=== PATIENT | female | born 1985 | race Caucasian/White ===

== ENCOUNTER → 2017-10-27 11:41 | Outpatient (CLI) | payer BC, SELFPAY ==
[2017-10-27 12:31] LABS: Add Manual Diff / Slide Review NO; Basophils Percent Auto 0.5 % (0-2); Eosinophils Percent Auto 1.1 % (2-4); Hematocrit 40.3 % (36-46); Hemoglobin 13.4 g/dL (12.0-16.0); Lymphocytes Percent Auto 30.2 % (25-40); Mean Corpuscular HGB Conc 33.4 % (30-36); Mean Corpuscular Hemoglobin 32.5 PG (26-34); Mean Corpuscular Volume 97.4 fL (80-100); Monocytes Percent Auto 9.2 % (3-14); Neutrophils Absolute Auto 4700 /uL (3000-5900); Platelet Count 222 X10^3/uL (150-400); Red Blood Cell Count 4.13 X10^6/uL (4.0-5.2); Red Cell Distribution Width 13.5 % (11.6-14.8); White Blood Cell Count 7.9 X10^3/uL (4.5-11.0)
[2017-10-27 16:45] LABS: Hepatitis B Surface Antigen NEGATIVE s/c (NEGATIVE); Rubella Antibody IgG 5.3 IU/mL (>15)
[2017-10-27 17:01] LABS: HIV 1 and 2 Antibody NEGATIVE (NEGATIVE); Hep C Virus Ab w/Reflex Quant NEGATIVE s/c (NEGATIVE)
[2017-10-31 13:32] LABS: HSV 2 IGG AB < 0.90 index (< 0.90); HSV1IGG < 0.90 index (< 0.90)
[2017-11-06 10:32] LABS: Rapid Plasma Reagin NON-REACTIVE
== END ==
PROVIDERS: PCP Obstetrics & Gynecology; Visit Provider Obstetrics & Gynecology
DX: Z34.91 Encounter for supervision of normal pregnancy, unspecified, first trimester (principal)
CPT/HCPCS: 36415; 80055; 86695; 86696; 86703; 86787; 86803; 86850; 86900; 86901; 87086

== ENCOUNTER → 2017-12-27 12:03 | Outpatient (CLI) | payer BC, SELFPAY ==
[2018-01-01 13:41] LABS: AFP, Serum 44.1 ng/mL; Calc Gestational Age 18.7; Cigarette Smoker N; Donated Egg NOT GIVEN; Donor Egg Age NOT GIVEN; Estriol, Free 1.32 ng/mL; Inhibin A, Dimeric 151 pg/mL; Maternal Weight 155 lbs; Number of Fetuses NOT GIVEN; Previous Pregnancy Down Syndro NOT GIVEN; hCG, MoM 2.21; hCG, Serum 47.8 IU/mL
== END ==
PROVIDERS: PCP Obstetrics & Gynecology; Visit Provider Obstetrics & Gynecology
DX: Z34.82 Encounter for supervision of other normal pregnancy, second trimester (principal)
CPT/HCPCS: 36415; 82105; 82677; 84702; 86336

== ENCOUNTER → 2018-01-10 10:41 | Outpatient (CLI) | payer BC, SELFPAY ==
--- NOTE | 2018-01-10 10:42 | DI.US.S_ITS ---
PROCEDURE: US OB >= 14 WEEKS FETUS INDICATIONS: anatomy survey OUTSIDE/PRIOR DATING DATA: Last menstrual period (LMP): 08/18/17. LMP-based estimated date of delivery (SOMMER): 05/25/18. First dating scan (date and location): 11/01/17. Estimated date of delivery (SOMMER) from first dating scan: 05/28/18. TECHNIQUE: Real-time scanning was performed of the fetus, with image documentation and biometric measurements. Endovaginal scanning: No COMPARISON: [facility], , OB <= 14 WEEKS FETUS, 11/01/2017, 11:17. FINDINGS: General: A single living intrauterine gestation is present. Presentation: Vertex. Placenta: Placental position is anterior, without previa. Amniotic fluid index: 16.0 cm, normal range is 5-24 cm. heart rate: 147 beats per minute. Maternal cervical canal: 7.1 cm long. Normal lower limit is 2.5 cm. biometrics: Biparietal diameter: 20 weeks Head circumference: 20 weeks 1 day Abdominal circumference: 20 weeks 2 days Femur length: 20 weeks 3 days Estimated gestational age from initial scan: 20 weeks 2 days Composite gestational age from present scan: 20 weeks 2 days Estimated weight and percentile: 347 g; 48 percentile Measurement variability for biometric dating: +/- 7 days from 14 weeks to 15 weeks 6 days gestation, +/- 10 days from 16 weeks to 21 weeks 6 days gestation, +/- 2 weeks from 22 weeks to 27 weeks 6 days gestation, +/- 3 weeks for 28 weeks gestation or later. weight reference: 4500 g or EFW >90/95% is considered macrosomia or large for gestational age. EFW <10% is small for gestational age. EFW 5% or less is considered intra-uterine growth restriction. Anatomic survey: Neuro: Ventricles are non-dilated at less than 10 mm. Cisterna magna is normal at 3-11 mm. Cerebellum is normal in size and morphology. Nuchal skin fold: Normal at less than 6 mm between 14-21 weeks gestational age. Face: Nose and lips are normal and facial profile not well-seen.. Spine: No evidence for spina bifida. Heart: 4-chambered heart is present, with normal ventricular outflow tracts. Diaphragm: Diaphragm is intact. Stomach: Left-sided stomach is present. Kidneys: No hydronephrosis. Normal is less than 5 mm in 2nd trimester, less than 7 mm in 3rd trimester. Cord: 3-vessel cord has orthotopic insertion. Bladder: Normal in size. Extremities: All 4 extremities identified. IMPRESSION: 1. Single living IUP redemonstrated and interval growth is normal. 2. Facial profile not well seen otherwise normal anatomy. Dictated by: Sudeep Dick [facility] Interpreted: Enzo Mills MD on 01/10/2018 at 12:07 Approved by: Enzo Mills M.D. on 01/10/2018 at 12:48
== END ==
PROVIDERS: PCP Obstetrics & Gynecology; Visit Provider Obstetrics & Gynecology
DX: Z34.82 Encounter for supervision of other normal pregnancy, second trimester (principal); Z3A.20 20 weeks gestation of pregnancy
CPT/HCPCS: 76811

== ENCOUNTER → 2018-01-27 18:18 | Outpatient (CLI) | payer BC, SELFPAY ==
--- NOTE | 2018-01-27 19:41 | PM.OBTRLD ---
Visit Information Visit Information Date of evaluation: 01/27/18 Primary OB Provider: Aga Le On-call OB Provider: Mili Fuchs Reason for Evaluation: Yes rupture of membranes Review of Systems Review of Systems Patient states she had a gush of what she thought was going to be blood with post fluid and she continued to have what she described as leaking small amount of fluid. She denies any fevers. She denies any contractions. She has noted good movement. Exam Vital Signs (past 8 hours): Blood pressure 104/57, pulse is 75, pulse is 77 Narrative Exam Narrative: Abdomen is soft nontender. Speculum exam reveals a normal vagina and cervix without any obvious pooling of fluid. AmniSure was performed and was negative. Cervix is long and closed. Ultrasound normal amniotic fluid volume and good movement. Evaluation Evaluation Baseline heart rate: 145 Variability: Average (6-10) monitor decelerations: Absent Contraction Frequency (minutes): 0 Cervical dilation (cm): 0 Cervical effacement (%): 0 station: -4 Non-invasive Membranes Rupture Test: negative Diagnosis, Plan/Disposition Final Diagnosis (1) Premature labor after 22 weeks and before 37 weeks without delivery: Current Visit: Yes Status: Acute Plan/Disposition Plan: No evidence of actual rupture membranes. Patient is reassured. Urine will be checked for infection. Patient is to call if any changes. OB Disposition: home
[2018-01-27 20:13] LABS: Bacteria Urine None Seen; RBC Urine None Seen (0-5/HPF); WBC Urine None Seen (0-5/HPF)
[2018-01-27 20:15] LABS: Appearance Urine UA SL CLOUDY; Bilirubin Urine UA NEGATIVE (NEGATIVE); Color Urine UA YELLOW; Glucose Urine UA NEGATIVE (Normal); Ketones Urine UA NEGATIVE (NEGATIVE); Leukocyte Esterase Urine UA NEGATIVE (NEGATIVE); Nitrite Urine UA Negative (Negative); Occult Blood Urine UA NEGATIVE (Negative); Protein Urine UA NEGATIVE (Negative); Specific Gravity Urine UA 1.015 (1.000-1.035); Urobilinogen Urine UA 0.2 E.U./dL (0.2)
[2018-01-27 20:28] VITALS: BP 105/59; PULSE 73; RESP 16; TEMP 36.3
[2018-01-27 20:31] LABS: Amorphous Sediment Urine 3+
[2018-01-27 20:32] LABS: Culture Indicated Urine Cult Not Indicated
== END | disposition home or self-care (01) ==
LOC: LABOR 18:25 → OB 01-30 08:46
PROVIDERS: Specialist; PCP Obstetrics & Gynecology; Visit Provider Family Medicine
DX: Z34.82 Encounter for supervision of other normal pregnancy, second trimester (principal); Z3A.23 23 weeks gestation of pregnancy
CPT/HCPCS: 59050; 76815; 81001; 84112; G0378; G0379

== ENCOUNTER → 2018-03-19 09:08 | Outpatient (CLI) | payer BC, SELFPAY ==
[2018-03-19 11:33] LABS: Hematocrit 34.3 % (36-46); Hemoglobin 11.6 g/dL (12.0-16.0)
[2018-03-19 12:08] LABS: GTT (PREG) 1 Hour PP 50gm Dose 83 mg/dL (76-139)
== END ==
PROVIDERS: PCP Obstetrics & Gynecology; Visit Provider Obstetrics & Gynecology
DX: Z34.92 Encounter for supervision of normal pregnancy, unspecified, second trimester (principal)
CPT/HCPCS: 36415; 82950; 85014; 85018

== ENCOUNTER → 2018-05-02 12:56 | Outpatient (CLI) | payer BC, SELFPAY ==
[2018-05-03 16:28] LABS: Strep Grp B PCR NEG for Grp B Strep
== END ==
PROVIDERS: PCP Obstetrics & Gynecology; Visit Provider Obstetrics & Gynecology
DX: Z34.83 Encounter for supervision of other normal pregnancy, third trimester (principal); Z3A.36 36 weeks gestation of pregnancy
CPT/HCPCS: 87653

== ENCOUNTER 2018-05-28 13:51 | Outpatient (CLI) | payer BC, SELFPAY ==
--- NOTE | 2018-05-28 15:34 | P.TNLD_ITS ---
Visit Information Visit Information Date of evaluation: 05/28/18 Primary OB Provider: Aga Le On-call OB Provider: Aga Le Reason for Evaluation: Yes non-stress test non-stress test reason: other ( Postdates) Evaluation Evaluation Baseline heart rate: 140 Variability: Moderate (11-25) monitor accelerations: Present monitor decelerations: Absent Contraction Frequency (minutes): 7 Uterine Contraction Intensity: Mild Category of Tracing: I Diagnosis, Plan/Disposition Final Diagnosis (1) 40 weeks gestation of : Current Visit: No Status: Acute Plan/Disposition Plan: Discharge to home Follow-up by phone tomorrow morning kick counts
== END 2018-05-28 14:30 | disposition home or self-care (01) ==
LOC: LABOR 14:02 → OB 05-29 14:55
PROVIDERS: Visit Provider Obstetrics & Gynecology
DX: O48.0 Post-term pregnancy (principal); Z3A.40 40 weeks gestation of pregnancy
CPT/HCPCS: 59025; G0378; G0379

== ENCOUNTER 2018-06-01 06:52 | Inpatient (IN) | payer BC, SELFPAY ==
[2018-06-01] MEDS: LACTATED RINGERS 1,000 ML 100 ML IV ×2 (07:45→12:45)
[2018-06-01] MEDS: OXYTOCIN PREMIX 30 UNIT/500 ML PLAST..BAG IV (08:16)
[2018-06-01 08:36] LABS: Add Manual Diff / Slide Review NO; Basophils Absolute Auto 0 /uL (0-100); Basophils Percent Auto 0.4 % (0-2); Eosinophils Absolute Auto 100 /uL (0-450); Hematocrit 34.9 % (36-46); Hemoglobin 11.9 g/dL (12.0-16.0); Lymphocytes Absolute Auto 1800 /uL (1100-4500); Lymphocytes Percent Auto 16.8 % (25-40); Mean Corpuscular HGB Conc 34.1 % (30-36); Mean Corpuscular Hemoglobin 33.6 PG (26-34); Mean Corpuscular Volume 98.5 fL (80-100); Monocytes Absolute Auto 1000 /uL (0-900); Monocytes Percent Auto 9.2 % (3-14); Neutrophils Absolute Auto 7800 /uL (1500-7000); Neutrophils Percent Auto 72.6 % (50-75); Platelet Count 176 X10^3/uL (150-400); Red Blood Cell Count 3.55 X10^6/uL (4.0-5.2); Red Cell Distribution Width 13.7 % (11.6-14.8); White Blood Cell Count 10.7 X10^3/uL (4.5-11.0)
[2018-06-01 09:54] VITALS: BP 105/60
--- NOTE | 2018-06-01 12:18 | PM.OBHP.1 ---
OB HPI Date/Time Date of admission: 06/01/18 Date Patient Seen: 06/01/18 Time Patient Seen: 07:30 History of Present Condition Chief complaint: OBSERVATION OF LABOR : 3 Para: 1 Estimated Date of Delivery: 05/25/18 Estimated Gestational Age (weeks): 41 Narrative: Chandni King is a 33 year old female admitted for induction for postdates Indications Indication for induction OB: post dates History of Present care: good care, initiated at week # (10), number of visits (12) and pounds weight gain (36) Dating criteria: LMP confirmed by 1st trimester US Ultrasounds: normal mid trimester US Obstetrical complications: none Medical complications: none Preadmission Labs Blood type: O (+) positive -: Antibody screen: negative, GBS status: negative, HBsAG: negative, HIV: negative, HSV 1: negative, HSV 2: negative and RPR/VDLR: negative -: Rubella: not immune and Varicella: immune HCAB: negative Quad screen: Normal 1 hr GTT: 83 Prior (ies) History: 08/13/2009 male infant 39 weeks 6 lb 11 oz with epidural catheter and gestational hypertension Evaluation Evaluation Baseline heart rate: 145 Variability: Moderate (11-25) monitor accelerations: Present monitor decelerations: Variable Contraction Frequency (minutes): 5 Uterine Contraction Intensity: Mild Category of Tracing: II Cervical dilation (cm): 4 Cervical effacement (%): 80 station: -2 Laboratory results: Laboratory Tests 06/01/18 06/01/18 07:40 07:40 WBC 10.7 RBC 3.55 L Hgb 11.9 L Hct 34.9 L MCV 98.5 MCH 33.6 MCHC 34.1 RDW 13.7 Plt Count 176 Neut % (Auto) 72.6 Lymph % (Auto) 16.8 L [place] % (Auto) 9.2 Eos % (Auto) 1.0 L Baso % (Auto) 0.4 Neut # (Auto) 7800 H Lymph # (Auto) 1800 [place] # (Auto) 1000 H Eos # (Auto) 100 Baso # (Auto) 0 Blood Type O Positive Antibody Screen Negative PFSH Medical History Mild exercise-induced asthma (Chronic) Surgical History H/O breast augmentation (Chronic) Hx of appendectomy (Inactive) Social History Smoking Status: Never smoker Social History Smoking Status: Never smoker Meds Allergies Allergy/AdvReac Type Severity Reaction Status Date / Time No Known Drug Allergies Allergy Verified 06/01/18 09:55 Review of Systems Review of Systems Patient denies any signs or symptoms of preeclampsia. She is not leaking fluid. She has noted good movement. She has mild irregular contractions. All systems reviewed & are unremarkable except as noted in HPI and below Exam Vital Signs (past 8 hours): - Blood pressure 105/60, pulse of 73, temperature 97.7? 06/01/18 09:54 Blood Pressure 105/60 Narrative Exam Narrative: HEENT exam within normal limits. Lungs are clear to auscultation and percussion. Heart is regular rate and rhythm no S3-S4 or murmurs. Abdomen is soft, nontender, gravid with vertex . Extremities with out edema and nontender. Objective Labs Result Diagrams: 06/01/18 07:40 Labs: Laboratory Results - last 24 hr 06/01/18 06/01/18 07:40 07:40 WBC 10.7 RBC 3.55 L Hgb 11.9 L Hct 34.9 L MCV 98.5 MCH 33.6 MCHC 34.1 RDW 13.7 Plt Count 176 Neut % (Auto) 72.6 Lymph % (Auto) 16.8 L [place] % (Auto) 9.2 Eos % (Auto) 1.0 L Baso % (Auto) 0.4 Neut # (Auto) 7800 H Lymph # (Auto) 1800 [place] # (Auto) 1000 H Eos # (Auto) 100 Baso # (Auto) 0 Blood Type O Positive Antibody Screen Negative Assessment and Plan (1) Post term at 41 weeks gestation: Current visit: Yes Status: Acute Patient was admitted for induction for post-term . Will start Pitocin. A ROM when indicated. Patient is requesting epidural catheter for pain control. Patient is rubella nonimmune so will need rubella . Patient did receive the Tdap in the 3rd trimester.
--- NOTE | 2018-06-01 12:28 | P.HPOB_ITS ---
OB HPI Date/Time Date of admission: 06/01/18 Date Patient Seen: 06/01/18 Time Patient Seen: 07:30 History of Present Condition Chief complaint: OBSERVATION OF LABOR : 3 Para: 1 Estimated Date of Delivery: 05/25/18 Estimated Gestational Age (weeks): 41 Narrative: Chandni King is a 33 year old female admitted for induction for postdates Indications Indication for induction OB: post dates History of Present care: good care, initiated at week # (10), number of visits (12) and p ounds weight gain (36) Dating criteria: LMP confirmed by 1st trimester US Ultrasounds: normal mid trimester US Obstetrical complications: none Medical complications: none Preadmission Labs Blood type: O (+) positive -: Antibody screen: negative, GBS status: negative, HBsAG: negative, HIV: negative, HSV 1: negative, HSV 2: negative and RPR/VDLR: negative -: Rubella: not immune and Varicella: immune HCAB: negative Quad screen: Normal 1 hr GTT: 83 Prior (ies) History: 08/13/2009 male infant 39 weeks 6 lb 11 oz with epidural catheter and gestational hypertension Evaluation Evaluation Baseline heart rate: 145 Variability: Moderate (11-25) monitor accelerations: Present monitor decelerations: Variable Contraction Frequency (minutes): 5 Uterine Contraction Intensity: Mild Category of Tracing: II Cervical dilation (cm): 4 Cervical effacement (%): 80 station: -2 Laboratory results: Laboratory Tests 06/01/18 06/01/18 07:40 07:40 WBC 10.7 RBC 3.55 L Hgb 11.9 L Hct 34.9 L MCV 98.5 MCH 33.6 MCHC 34.1 RDW 13.7 Plt Count 176 Neut % (Auto) 72.6 Lymph % (Auto) 16.8 L [place] % (Auto) 9.2 Eos % (Auto) 1.0 L Baso % (Auto) 0.4 Neut # (Auto) 7800 H Lymph # (Auto) 1800 [place] # (Auto) 1000 H Eos # (Auto) 100 Baso # (Auto) 0 Blood Type O Positive Antibody Screen Negative PFSH Medical History Mild exercise-induced asthma (Chronic) Surgical History H/O breast augmentation (Chronic) Hx of appendectomy (Inactive) Social History Smoking Status: Never smoker Social History Smoking Status: Never smoker Meds Allergies Allergy/AdvReac Type Severity Reaction Status Date / Time No Known Drug Allergies Allergy Verified 06/01/18 09:55 Review of Systems Review of Systems Patient denies any signs or symptoms of preeclampsia. She is not leaking fluid. She has noted good movement. She has mild irregular contractions. All systems reviewed & are unremarkable except as noted in HPI and below Exam Vital Signs (past 8 hours): - Blood pressure 105/60, pulse of 73, temperature 97.7? 06/01/18 09:54 Blood Pressure 105/60 Narrative Exam Narrative: HEENT exam within normal limits. Lungs are clear to auscultation and percussion. Heart is regular rate and rhythm no S3-S4 or murmurs. Abdomen is soft, nontender, gravid with vertex infant. Extremities with out edema and nontender. Objective Labs Result Diagrams: 06/01/18 07:40 Labs: Laboratory Results - last 24 hr 06/01/18 06/01/18 07:40 07:40 WBC 10.7 RBC 3.55 L Hgb 11.9 L Hct 34.9 L MCV 98.5 MCH 33.6 MCHC 34.1 RDW 13.7 Plt Count 176 Neut % (Auto) 72.6 Lymph % (Auto) 16.8 L [place] % (Auto) 9.2 Eos % (Auto) 1.0 L Baso % (Auto) 0.4 Neut # (Auto) 7800 H Lymph # (Auto) 1800 [place] # (Auto) 1000 H Eos # (Auto) 100 Baso # (Auto) 0 Blood Type O Positive Antibody Screen Negative Assessment and Plan (1) Post term at 41 weeks gestation: Current visit: Yes Status: Acute Patient was admitted for induction for post-term . Will start Pitocin. A ROM when indicated. Patient is requesting epidural catheter for pain control. Patient is rubella nonimmune so will need rubella . Patient did receive the Tdap in the 3rd trimester.
--- NOTE | 2018-06-01 16:19 | PM.OBPRVD ---
Events: Labor Induction (41 week) Delivery date: 06/01/18 Intrapartal events: None Induction method: per pitocin protocol Delivery monitor: external FHT and external uterine Route of delivery: L&D Laceration Description: None Estimated blood loss (mL): 100 Anesthesia type: Epidural Narrative: Patient arrived on Labor and delivery for induction of labor at 41 weeks. She was started on Pitocin. She was AROMed for clear fluid. She received an epidural catheter for pain control. heart tones category 1 to category 2 throughout labor. She delivered spontaneously, over an intact perineum a viable female . After the cord stopped pulsating the cord was clamped cut and cord bloods obtained. The placenta delivered spontaneously with 3 vessels and intact. There were no cervical, vaginal, or perineal tears. Estimated blood loss was 100 cc. Patient and infant are doing well. Weight 7 lb 6 oz, 3354 g [place] Baby 1: Infant gender: Female Presentation: vertex position: Right Occiput Anterior Placenta delivery description: Spontaneous cord vessel description: 3 Vessels score (1 min): 8 score (5 min): 9 Plan for aftercare: Routine care
[2018-06-01 20:16] VITALS: TEMP 36.9
[2018-06-01] MEDS: IBUPROFEN 600 MG TABLET PO (20:16)
[2018-06-02] MEDS: IBUPROFEN 600 MG TABLET PO ×2 (01:51→08:08)
[2018-06-02 09:05] LABS: Add Manual Diff / Slide Review NO; Basophils Absolute Auto 0 /uL (0-100); Basophils Percent Auto 0.3 % (0-2); Eosinophils Absolute Auto 100 /uL (0-450); Eosinophils Percent Auto 0.5 % (2-4); Hemoglobin 11.8 g/dL (12.0-16.0); Lymphocytes Absolute Auto 1200 /uL (1100-4500); Lymphocytes Percent Auto 11.4 % (25-40); Mean Corpuscular HGB Conc 33.6 % (30-36); Mean Corpuscular Hemoglobin 33.2 PG (26-34); Mean Corpuscular Volume 98.7 fL (80-100); Monocytes Absolute Auto 1200 /uL (0-900); Monocytes Percent Auto 11.1 % (3-14); Neutrophils Absolute Auto 8000 /uL (1500-7000); Neutrophils Percent Auto 76.7 % (50-75); Platelet Count 162 X10^3/uL (150-400); Red Blood Cell Count 3.55 X10^6/uL (4.0-5.2); Red Cell Distribution Width 13.8 % (11.6-14.8); White Blood Cell Count 10.4 X10^3/uL (4.5-11.0)
--- NOTE | 2018-06-02 11:12 | PM.OBDS.1 ---
Discharge Providers Date of admission: 06/01/18 06:52 Primary care physician: Aga Le MD Consults: 06/01/18 16:13 Consult to [facility] Warm Up Routine Comment: Discharge provider: Mili Fuchs MD Discharge Date: 06/02/18 Summary Date Patient Seen: 06/02/18 Time Patient Seen: 11:12 Hospital Course: Patient arrived on Labor and delivery for induction for postdates. She received Pitocin and was AROM for clear fluid. She received an epidural catheter for pain control. She delivered spontaneously a viable female weighing 3354 g, 7 lb 6 oz. She and the baby are doing well. She is breast-feeding without difficulty. No signs or symptoms of preeclampsia. No fevers. Just cramping but no significant pain. Blood pressure 111/62, pulse of 74, temperature 97.6? Abdomen is soft nontender. Uterus is firm, at U, nontender. Mild lochia. Extremities with trace edema and nontender. Patient is Rh positive so does not need RhoGAM. She will receive rubella vaccine prior to discharge. Peripartum Data Infant Delivery Method: Natural Vaginal Laceration description: None Procedures: Pitocin induction, epidural catheter, vaginal delivery. complications: none 1: Gender: Female Disposition of : home Discharge Diagnosis (1) Post term at 41 weeks gestation: Status: Acute Status at Discharge Functional status at discharge: independent ambulation Overall status at discharge: patient is progressing back to baseline Time Spent with Patient Total time spent providing and/or coordinating discharge services: Less than 30 minutes Objective Labs Result Diagrams: 06/02/18 Unknown Labs: Laboratory Results - last 24 hr 06/02/18 Unknown WBC 10.4 RBC 3.55 L Hgb 11.8 L Hct 35.0 L MCV 98.7 MCH 33.2 MCHC 33.6 RDW 13.8 Plt Count 162 Neut % (Auto) 76.7 H Lymph % (Auto) 11.4 L [place] % (Auto) 11.1 Eos % (Auto) 0.5 L Baso % (Auto) 0.3 Neut # (Auto) 8000 H Lymph # (Auto) 1200 [place] # (Auto) 1200 H Eos # (Auto) 100 Baso # (Auto) 0 Discharge Plan Discharge Plan Patient Disposition: Home Discharge Med Rec/Prescriptions Follow up/Referrals: Garde,Aga A, MD [Primary Care Provider] - 6 Weeks ( exam) Provider Discharge Instructions Diet: Regular Activity: Nothing in vagina for 6 weeks Discharge Data Primary Care Provider: Aga Le Attending Provider: Aga Le Admit Date/Time: 06/01/18 06:52
[2018-06-02 11:31] VITALS: BP 111/62; PULSE 74; RESP 16; TEMP 36.4
[2018-06-02 13:01] VITALS: BP 111/62; PULSE 74; RESP 16; TEMP 36.4
[2018-06-02] MEDS: MEASLES,MUMPS,RUBELLA VACC/PF 0.5 ML VIAL SUBCUT (13:41)
== END 2018-06-02 14:08 | disposition home or self-care (01) | DRG 807 ==
PROVIDERS: Specialist; Admitting Provider Obstetrics & Gynecology; PCP Obstetrics & Gynecology; Visit Provider Obstetrics & Gynecology
DX: O48.0 Post-term pregnancy (principal); Z37.0 Single live birth; Z3A.41 41 weeks gestation of pregnancy
CPT/HCPCS: 01967; 36415; 59050; 59400; 59409; 85025; 86850; 86900; 86901; G0379; J2590

== ENCOUNTER → 2019-01-03 13:04 | Outpatient (CLI) | payer BC, SELFPAY ==
--- NOTE | 2019-01-03 | DI.MG.S_ITS ---
BILATERAL DIGITAL DIAGNOSTIC MAMMOGRAM 3D/2D WITH AUGMENTATION: 01/03/2019 CLINICAL: Right breast mass. No prior exams were available for comparison. The tissue of both breasts is heterogeneously dense. This may lower the sensitivity of mammography. Bilateral prepectoral breast implants are present. No finding to correspond to the patient's palpable abnormality. No significant masses, calcifications, or other findings are seen in either breast. IMPRESSION: INCOMPLETE: NEEDS ADDITIONAL IMAGING EVALUATION There is no mammographic correlate to the patient's palpable abnormality, and thus it remains indeterminate. Ultrasound evaluation is recommended. This was performed immediately following this exam. This exam was interpreted at Station ID: [id number]. NOTE: For mammograms, a report in lay terms will be sent to the patient. Approximately 15% of breast malignancies will not be visualized mammographically. In the management of a palpable breast mass, a negative mammogram must not discourage biopsy of a clinically suspicious lesion. Electronically Signed By: Kate rodrigues/:01/03/2019 17:16:31 ACR BI-RADS Category 0: Incomplete [id number]
--- NOTE | 2019-01-03 13:04 | DI.US.S_ITS ---
LIMITED ULTRASOUND OF RIGHT BREAST: 01/03/2019 CLINICAL: Palpable right breast lump. Comparison is made to exam dated: 01/03/2019 [facility]. Color flow and real-time ultrasound of the right breast were performed. Michaud scale images of the real-time examination were reviewed. There is no cyst, solid mass, or shadowing in the tissue overlying the implant. The contour of the implant capsule is wavy. There is trace amount of localized fluid around right implant at 11:30 o'clock which correlates to the palpable abnormality. IMPRESSION: INCOMPLETE: NEEDS ADDITIONAL IMAGING EVALUATION There is no sonographic evidence of malignancy. Irregular implant contour and trace pericapsular fluid. Implant rupture cannot be excluded. Breast MRI is recommended for further evaluation of the implant integrety. Findings and recommendations were conveyed to the patient at time of exam. This exam was interpreted at Station ID: [id number]. Electronically Signed By: Kate rodrigues/:01/03/2019 17:25:30 letter sent: Need MRI Ultrasound BI-RADS: 0 Indeterminate
== END ==
PROVIDERS: PCP Nurse Practitioner Family; Visit Provider Nurse Practitioner Family
DX: R92.8 Other abnormal and inconclusive findings on diagnostic imaging of breast (principal); N63.10 Unspecified lump in the right breast, unspecified quadrant; Z98.82 Breast implant status
CPT/HCPCS: 76642; 77066; G0279

== ENCOUNTER → 2019-01-30 09:06 | Outpatient (CLI) | payer BC, SELFPAY ==
--- NOTE | 2019-01-30 09:11 | DI.MRI.S_ITS ---
BREAST MRI OF BOTH BREASTS- WITH CAD: 01/30/2019 CLINICAL: Possible implant rupture. Comparison is made to exams dated: 01/03/2019 ultrasound and 01/03/2019 mammogram - [facility]. Interpretation of this MRI was correlated with available mammograms and ultrasounds. Informed consent was obtained from the patient. 20 cc of ProHance (Gadoteridol) nonionic contrast was injected. Implant sequence, axial T1, T2, sagittal T1, and pre and post contrast T1 images were obtained with a dedicated breast coil. Post processing was performed including computer aided calculations of any tumor volumes and dimensions. Bilateral background breast enhancement is mild. Right breast: There is a prepectoral silicone implant which appears intact. No evidence of intracapsular or extracapsular rupture. No discrete mass or suspicious enhancement to suggest malignancy. There are 2 small foci of enhancement anteriorly measuring up to approximately 4 mm which demonstrate benign-appearing kinetic enhancement curves with slow initial rise and progressive uptake. Left breast: There is a prepectoral silicone implant which appears intact. No definite intracapsular or extracapsular rupture. No discrete mass or suspicious enhancement to suggest malignancy. Miscellaneous: No axillary or internal mammary lymphadenopathy by size criteria. IMPRESSION: NEGATIVE 1. No evidence of implant rupture. 2. No evidence of malignancy in the right or left breast. Recommend follow-up of patient's palpable finding clinically. This exam was interpreted at Station ID: [id number]. Electronically Signed By: Ziyad Cason M.D. ddp/:01/30/2019 13:16:28 letter sent: Clinical Evaluation ACR BI-RADS Category 1: Negative [id number]
== END ==
PROVIDERS: PCP Nurse Practitioner Family; Visit Provider Nurse Practitioner Family
DX: R92.8 Other abnormal and inconclusive findings on diagnostic imaging of breast (principal); Z98.82 Breast implant status
CPT/HCPCS: 77049; A9579

== ENCOUNTER → 2019-05-31 11:03 | Outpatient (CLI) | payer BC, SELFPAY ==
[2019-05-31 12:39] LABS: Alanine Aminotransferase 15 IU/L (<35); Albumin 4.3 g/dL (3.5-5.0); Albumin Globulin Ratio 1.3 (1.0-2.8); Alkaline Phosphatase 63 U/L (38-126); Aspartate Aminotransferase 27 IU/L (14-36); BUN Creatinine Ratio 14.4 (6-22); Bilirubin Total 0.4 mg/dL (0.2-1.3); Blood Urea Nitrogen 13 mg/dL (7-17); Calcium 9.5 mg/dL (8.4-10.2); Carbon Dioxide 26 mmol/L (22-32); Chloride 103 mmol/L (98-107); Cholesterol 167 mg/dL (140-199); Estimated Glomerular Filt Rate > 60.0 mL/min (>60); Globulin 3.3 g/dL (1.7-4.1); Glucose 88 mg/dL (70-100); HDL Cholesterol 78 mg/dL (40-60); HEMOLYSIS < 15 (0-50); LDL Cholesterol Calculated 76 mg/dL (<100); Potassium 4.1 mmol/L (3.4-5.1); Sodium 140 mmol/L (137-145); Total Protein 7.6 g/dL (6.3-8.2); Triglycerides 63 mg/dL (35-150)
[2019-05-31 12:40] LABS: Hematocrit 37.2 % (36-46); Hemoglobin 12.5 g/dL (12.0-16.0); Mean Corpuscular HGB Conc 33.8 % (30-36); Mean Corpuscular Hemoglobin 32.1 PG (26-34); Platelet Count 203 X10^3/uL (150-400); Red Blood Cell Count 3.91 X10^6/uL (4.0-5.2); Red Cell Distribution Width 13.4 % (11.6-14.8); White Blood Cell Count 7.7 X10^3/uL (4.5-11.0)
== END ==
PROVIDERS: PCP Nurse Practitioner Family; Referring Provider Nurse Practitioner Family; Visit Provider Nurse Practitioner Family
DX: Z00.00 Encounter for general adult medical examination without abnormal findings (principal); Z13.6 Encounter for screening for cardiovascular disorders
CPT/HCPCS: 36415; 80053; 80061; 85027

== ENCOUNTER → 2020-02-28 12:32 | Outpatient (CLI) | payer BC, SELFPAY ==
[2020-02-28 13:17] LABS: Hematocrit 40.1 % (36-46); Hemoglobin 13.2 g/dL (12.0-16.0); Mean Corpuscular Hemoglobin 31.7 PG (26-34); Platelet Count 212 X10^3/uL (150-400); Red Blood Cell Count 4.18 X10^6/uL (4.0-5.2); Red Cell Distribution Width 12.8 % (11.6-14.8); White Blood Cell Count 6.3 X10^3/uL (4.5-11.0)
[2020-02-28 13:34] LABS: Alanine Aminotransferase 21 IU/L (<35); Albumin 4.4 g/dL (3.5-5.0); Albumin Globulin Ratio 1.4 (1.0-2.8); Alkaline Phosphatase 57 U/L (38-126); Aspartate Aminotransferase 28 IU/L (14-36); BUN Creatinine Ratio 19.6 (6-22); Bilirubin Total 0.4 mg/dL (0.2-1.3); Blood Urea Nitrogen 19 mg/dL (7-17); Calcium 9.6 mg/dL (8.4-10.2); Carbon Dioxide 30 mmol/L (22-32); Chloride 104 mmol/L (98-107); Estimated Glomerular Filt Rate > 60.0 mL/min (>60); Globulin 3.1 g/dL (1.7-4.1); Glucose 91 mg/dL (70-100); HEMOLYSIS < 15 (0-50); Sodium 138 mmol/L (137-145); Total Protein 7.5 g/dL (6.3-8.2)
== END ==
PROVIDERS: PCP Nurse Practitioner Family; Referring Provider Nurse Practitioner Family; Visit Provider Nurse Practitioner Family
DX: F41.9 Anxiety disorder, unspecified (principal); R00.2 Palpitations
CPT/HCPCS: 36415; 80053; 84443; 85027

== ENCOUNTER → 2020-03-12 15:26 | Outpatient (CLI) | payer BC, SELFPAY ==
--- NOTE | 2020-04-10 14:44 | P.HOLT.S_ITS ---
Jig Inspector Report Referral & Results Date Patient Seen: 03/12/20 Requesting provider: Anne Dumont Indication: Palpitations Duration of monitoring (days): 6 Diary information: There were 2 patient triggered events and 1 patient diary entry Patient triggered events were associated with (within 45 seconds) sinus rhythm and PVCs Patient diary event was associated with sinus rhythm only Data: Minimum heart rate identified was 49 beats per minute at 02:46 on 03/16/2020 Maximum heart rate was 155 beats per minute at 15:32 on 03/17/2020 Less than 1% of identified beats or either ventricular supraventricular ectopic in origin Impression: 6+ day cardiac rehab nurse demonstrating rare PVCs. Based on patient triggered events PVCs are possibly the source of patient's identified symptom of palpitations. However patient also recorded symptoms during sinus rhythm only runs Clinical correlation suggested
== END ==
PROVIDERS: PCP Nurse Practitioner Family; Referring Provider Nurse Practitioner Family; Visit Provider Nurse Practitioner Family
DX: R00.2 Palpitations (principal)
CPT/HCPCS: 0296T; 0298T

== ENCOUNTER → 2020-04-04 10:01 | Outpatient (CLI) | payer BC, SELFPAY ==
[2020-04-04 11:33] LABS: COVID19 -Nasal RAPID Negative (Negative)
== END ==
PROVIDERS: PCP Nurse Practitioner Family; Visit Provider Nurse Practitioner
DX: Z03.818 Encounter for observation for suspected exposure to other biological agents ruled out (principal); H93.8X3 Other specified disorders of ear, bilateral; R19.7 Diarrhea, unspecified
CPT/HCPCS: 87635

== ENCOUNTER → 2021-01-28 12:07 | Outpatient (CLI) | payer BC, SELFPAY | PROVIDERS: PCP Nurse Practitioner Family; Visit Provider Nurse Practitioner Family | DX: L60.1 Onycholysis (principal) | CPT/HCPCS: 87102 ==

== ENCOUNTER 2021-04-03 14:22 | Emergency (ER) | payer BC, SELFPAY ==
[2021-04-03 14:49] VITALS: BP 122/62; PULSE 82; RESP 16; TEMP 36.7; O2SAT 98; BMI 23.6
[2021-04-03 15:40] LABS: Add Manual Diff / Slide Review NO; Basophils Absolute Auto 0 /uL (0-100); Basophils Percent Auto 0.6 % (0-2); Eosinophils Absolute Auto 100 /uL (0-450); Eosinophils Percent Auto 1.5 % (2-4); Hematocrit 39.2 % (36-46); Hemoglobin 13.1 g/dL (12.0-16.0); Lymphocytes Absolute Auto 2200 /uL (1100-4500); Lymphocytes Percent Auto 38.8 % (25-40); Mean Corpuscular HGB Conc 33.5 % (30-36); Mean Corpuscular Hemoglobin 32.1 PG (26-34); Monocytes Absolute Auto 400 /uL (0-900); Monocytes Percent Auto 7.8 % (3-14); Neutrophils Absolute Auto 2900 /uL (1500-7000); Neutrophils Percent Auto 51.3 % (50-75); Platelet Count 209 X10^3/uL (150-400); Red Blood Cell Count 4.08 X10^6/uL (4.0-5.2); Red Cell Distribution Width 13.3 % (11.6-14.8); White Blood Cell Count 5.6 X10^3/uL (4.5-11.0)
[2021-04-03 15:43] LABS: Alanine Aminotransferase 23 IU/L (<35); Albumin 4.4 g/dL (3.5-5.0); Albumin Globulin Ratio 1.5 (1.0-2.8); Alkaline Phosphatase 60 U/L (38-126); Aspartate Aminotransferase 28 IU/L (14-36); BUN Creatinine Ratio 21.6 (6-22); Bilirubin Total 0.3 mg/dL (0.2-1.3); Blood Urea Nitrogen 21 mg/dL (7-17); Calcium 9.5 mg/dL (8.4-10.2); Carbon Dioxide 28 mmol/L (22-32); Chloride 105 mmol/L (98-107); Estimated Glomerular Filt Rate > 60.0 mL/min (>60); Globulin 2.9 g/dL (1.7-4.1); Glucose 94 mg/dL (70-100); HEMOLYSIS < 15 (0-50); Potassium 3.5 mmol/L (3.4-5.1); Sodium 141 mmol/L (137-145); Total Protein 7.3 g/dL (6.3-8.2)
[2021-04-03 15:46] LABS: Bacteria Urine None Seen; Culture Indicated Urine Cult Not Indicated; RBC Urine 1-5/HPF (0-5/HPF); WBC Urine None Seen (0-5/HPF)
--- NOTE | 2021-04-03 16:41 | ED_ITS ---
HPI - <BELKIS Lee - Last Filed: 04/03/21 16:54> General Chief complaint: Vaginal Bleeding Stated complaint: Bleeding/cramping- 6 weeks Time Seen by Provider: 04/03/21 15:21 Source: patient Mode of arrival: Ambulatory Limitations: no limitations History of Present Illness HPI Narrative: 36-year-old female presents to the emergency department for vaginal b leeding, cramping, with clot it is. Patient reports she is 6 weeks , her last menstrual period was February 21, 2021. Her bleeding and cramping started this morning and her OBGYN sent her into the emergency department. Patient reports that she is mildly nauseated, denies any fever, vomiting, diarrhea, abdominal pain, back pain, or other. 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 She had a positive test 1 week ago and that is when she found out she was . Patient reports that she just come off control when they started trying to get and then she got right away so did not expect this. Related Data Previous Rx's Medication Instructions Recorded hkovtakecp-frpttgcmljoil-qpfgiokd 1 cap PO Q4-6H PRN #30 cap 04/23/20 50 mg-325 mg-40 mg capsule etonogestrel 0.12 mg-ethinyl 1 vag ring VAG Q4W #3 each 11/11/20 estradiol 0.015 mg/24 hr vaginal ring (NuvaRing) buspirone 5 mg tablet 5 mg PO TID #270 tab 01/27/21 ciclopirox 8 % topical solution 1 applic TOPICAL BEDTIME 28 Days 01/28/21 #6.6 ml Allergies Allergy/AdvReac Type Severity Reaction Status Date / Time No Known Drug Allergies Allergy Verified 04/03/21 14:53 Review of Systems <BELKIS Lee - Last Filed: 04/03/21 16:54> Review of Systems Narrative: General: denies fever, chills Head/Neck: denies headache, neck pain Eyes: denies visual changes, eye pain Cardio: denies chest pain, palpitations Respiratory: denies shortness of breath, cough GI: denies abdominal pain, nausea, vomiting, or diarrhea : denies dysuria, hematuria 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 MSK: denies joint pain, muscle weakness Skin: denies rash, itching Neuro: denies numbness, tingling Exam <BELKIS Lee - Last Filed: 04/03/21 16:54> Narrative Exam Narrative: Independently reviewed vitals signs and nursing notes. General: Awake, alert, nontoxic, no cardiorespiratory distress Head/Neck: Atraumatic, neck full range of motion Eyes: EOMI, conjunctiva normal Nose: nares patent, no rhinorrhea Mouth/Throat: moist mucus membranes, posterior pharynx normal, no oral lesions Cardio: Regular rate and rhythm, no peripheral edema Respiratory: respirations unlabored without wheezing, stridor, or rales. No retractions. 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 No ultrasound ordered as patient 's hCG level was 14. Patient did not have tenderness to her suprapubic area or over either ovary. MSK: Moves all extremities, neurovascularly intact Skin: Normal capillary refill, no rash Neuro: Normal speech and cognition, normal gait Initial Vital Signs Initial Vital Signs: Vital Signs Temperature 98.1 F 04/03/21 14:49 Pulse Rate 82 04/03/21 14:49 Respiratory Rate 16 04/03/21 14:49 Blood Pressure 122/62 04/03/21 14:49 Pulse Oximetry 98 04/03/21 14:49 Course <BELKIS Lee - Last Filed: 04/03/21 16:54> Orders Ordered: ED Orders 04/03/21 14:54 Urine Microscopic Stat 04/03/21 15:10 ABO RH Type Stat Complete Blood Count AUTO DIFF Stat Comprehensive Metabolic Panel Stat HCG Quantitative /Beta subunit Stat 04/03/21 15:23 US OB transvaginal Stat Vital Signs Vital signs: Vital Signs - 8 hr 04/03/21 14:49 Temperature 98.1 F Pulse Rate 82 Respiratory Rate 16 Blood Pressure 122/62 Pulse Oximetry 98 MDM - OB/Uterine Contractions <BELKIS Lee - Last Filed: 04/03/21 16:54> Lab Data Result diagrams: 04/03/21 15:10 04/03/21 15:10 Labs: Lab Results 04/03/21 04/03/21 04/03/21 Range/Units 14:54 15:10 15:10 WBC 5.6 (4.5-11.0) X10^3/uL RBC 4.08 (4.0-5.2) X10^6/uL Hgb 13.1 (12.0-16.0) g/dL Hct 39.2 (36-46) % MCV 96.0 (80-100) fL MCH 32.1 (26-34) PG MCHC 33.5 (30-36) % RDW 13.3 (11.6-14.8) % Plt Count 209 (150-400) X10^3/uL Neut % (Auto) 51.3 (50-75) % Lymph % (Auto) 38.8 (25-40) % [place] % (Auto) 7.8 (3-14) % Eos % (Auto) 1.5 L (2-4) % Baso % (Auto) 0.6 (0-2) % Neut # (Auto) 2900 (3833-0842) /uL Lymph # (Auto) 2200 (0227-6976) /uL [place] # (Auto) 400 (0-900) /uL Eos # (Auto) 100 (0-450) /uL Baso # (Auto) 0 (0-100) /uL Sodium 141 (137-145) mmol/L Potassium 3.5 (3.4-5.1) mmol/L Chloride 105 (98-107) mmol/L Carbon Dioxide 28 (22-32) mmol/L BUN 21 H (7-17) mg/dL Creatinine 0.97 (0.52-1.04) mg/dL Estimated GFR > 60.0 (>60) mL/min BUN/Creatinine Ratio 21.6 (6-22) Glucose 94 (70-100) mg/dL Calcium 9.5 (8.4-10.2) mg/dL Total Bilirubin 0.3 (0.2-1.3) mg/dL AST 28 (14-36) IU/L ALT 23 (<35) IU/L Alkaline Phosphatase 60 (38-126) U/L Total Protein 7.3 (6.3-8.2) g/dL Albumin 4.4 (3.5-5.0) g/dL Globulin 2.9 (1.7-4.1) g/dL Albumin/Globulin Ratio 1.5 (1.0-2.8) HCG, Quant 14.0 mIU/mL Urine RBC 1-5/hpf (0-5/HPF) Urine WBC None seen (0-5/HPF) Urine Bacteria None seen (None) Ur Culture Indicated? Cult not indicated Blood Type 04/03/21 Range/Units 15:10 WBC (4.5-11.0) X10^3/uL RBC (4.0-5.2) X10^6/uL Hgb (12.0-16.0) g/dL Hct (36-46) % MCV (80-100) fL MCH (26-34) PG MCHC (30-36) % RDW (11.6-14.8) % Plt Count (150-400) X10^3/uL Neut % (Auto) (50-75) % Lymph % (Auto) (25-40) % [place] % (Auto) (3-14) % Eos % (Auto) (2-4) % Baso % (Auto) (0-2) % Neut # (Auto) (4352-4477) /uL Lymph # (Auto) (7191-6623) /uL [place] # (Auto) (0-900) /uL Eos # (Auto) (0-450) /uL Baso # (Auto) (0-100) /uL Sodium (137-145) mmol/L Potassium (3.4-5.1) mmol/L Chloride (98-107) mmol/L Carbon Dioxide (22-32) mmol/L BUN (7-17) mg/dL Creatinine (0.52-1.04) mg/dL Estimated GFR (>60) mL/min BUN/Creatinine Ratio (6-22) Glucose (70-100) mg/dL Calcium (8.4-10.2) mg/dL Total Bilirubin (0.2-1.3) mg/dL AST (14-36) IU/L ALT (<35) IU/L Alkaline Phosphatase (38-126) U/L Total Protein (6.3-8.2) g/dL Albumin (3.5-5.0) g/dL Globulin (1.7-4.1) g/dL Albumin/Globulin Ratio (1.0-2.8) HCG, Quant mIU/mL Urine RBC (0-5/HPF) Urine WBC (0-5/HPF) Urine Bacteria (None) Ur Culture Indicated? Blood Type O Positive Point of Care Testing Test Results Negative Urine Dip Bedside Urine Glucose Negative Bedside Urine Bilirubin - Negative Bedside Urine Ketone - Negative Urine Specific [place] 1.030 Bedside Urine Occult Blood ++ Bedside Urine pH 6.0 Bedside Urine Protein - Negative Bedside Urine Urobilinogen 0.2 Bedside Urine Nitrite - Negative Bedside Urine Leukocytes - Negative Esterase MDM Narrative Medical decision making narrative: 36-year-old female presented to emergency department with concern for miscarriage, patient is a with LMP on February 21, 2021 had a positive test 1 today she began bleeding this morning, with cramping and clots and came to the emergency department. Her hCG level was 14, her urine test was negative, she did not have any signs of anemia on her lab work or leukocytosis, and no other abnormal labs. Pelvic ultrasound completed this patient's hCG level was too low. Patient did not have any pain, vomiting, or concern for retained products of conception. Patient instructed to follow-up with her OBGYN or PCP in the next couple days. Patient is appropriate and amenable to discharge home. Vital signs are stable on repeat examination is unremarkable. Patient has been informed of results. Patient has been given strict return to ER precautions for any new or worsening symptoms. Patient understands to follow up closely with outpatient providers as instructed. Korina hussein understands plan and agrees to discharge home. All questions and concerns answered at this time. Discharge Plan Departure Patient Disposition: Home Clinical Impression: Complete miscarriage Activity Restrictions/Additional Instructions: *You have been diagnosed with a miscarriage of a fetus 6 weeks or less. I am very sorry for this news. Your hCG level today was 14. This indicates that you are not currently , and the bleeding that you have experiencing is most likely and expulsion of contents in your uterus. If you have not already passed tissue with clots you may. We did not need to do an ultrasound today because of your HCG level. Please follow-up with your primary care provider in the next few days for recheck. I am glad that you have 2 healthy children. If you have any abdominal pain, nausea with vomiting, fever, or cramping, please return to the emergency department as you may have retained some products of conception and may need a procedure or antibiotics in that case. Otherwise, hug your babies tight, and take it easy for a few days. I'm sorry this has happened. *What to do: *Please continue to take your regular medications as directed. [ ] New medication prescriptions sent to your pharmacy: [ ] [ ] New medication written as a paper prescription [x ] No new medications given *Please follow up with your primary care provider in 2-3 days, call for an appointment. Let them know you were seen in the Emergency Department and that we ask that you be seen in follow up. We will electronically transmit a record of today's note if your PCP is in our system *If you do not have a primary care provider please contact the [facility] Resource line at [phone]. They will ask some questions about your medical history and help get you set up with a doctor in the community. *Return to Emergency Department if you should have any new, worsening or concerning symptoms, such as [fever greater than 101F, chills, worsening pain, persistent vomiting or other bothersome symptoms] Prescriptions: No Action NuvaRing 0.12-0.015 mg/24 hr ring 1 vag ring VAG Q4W Qty: 3 4RF Rx Instructions: leave in place for 3 weeks of a 4-week cycle. Due for appointment prior to future refills. buspirone 5 mg tablet 5 mg PO TID Qty: 270 2RF ukxptgnjxu-fopeqtpndjvhp-kgdr 50-325-40 mg capsule 1 cap PO Q4-6H PRN (Reason: pain) Qty: 30 1RF Rx Instructions: may interact with Nuvaring, use other forms of contraception during therapy. ciclopirox 8 % solution 1 applic topical BEDTIME 28 Days Qty: 6.6 4RF Rx Instructions: use daily, wipe off with alcohol on seventh day and start again. Do not use if Referrals: Anne Dumont ARNP [Primary Care Provider] -
== END 2021-04-03 16:52 | disposition home or self-care (01) ==
PROVIDERS: Emergency Medicine; Emergency Provider Nurse Practitioner Critical Care Medicine; PCP Nurse Practitioner Family
DX: O03.9 Complete or unspecified spontaneous abortion without complication (principal)
CPT/HCPCS: 36415; 80053; 81003; 81015; 81025; 84702; 85025; 86900; 86901; 99282; 99283

== ENCOUNTER → 2021-04-21 10:52 | Outpatient (CLI) | payer BC, SELFPAY ==
[2021-04-21 13:55] LABS: COVID19 -Nasal RAPID POSITIVE (Negative)
== END ==
PROVIDERS: PCP Nurse Practitioner Family; Referring Provider Nurse Practitioner Family; Visit Provider Nurse Practitioner Family
DX: Z20.822 Contact with and (suspected) exposure to COVID-19 (principal); R09.81 Nasal congestion; J02.9 Acute pharyngitis, unspecified; R05.9 Cough, unspecified
CPT/HCPCS: 87635

== ENCOUNTER → 2021-08-10 09:58 | Outpatient (CLI) | payer BC, SELFPAY ==
[2021-08-10 11:32] LABS: HCG Quantitative /Beta subunit 86.6 mIU/mL
== END ==
PROVIDERS: PCP Nurse Practitioner Family; Referring Provider Obstetrics & Gynecology; Visit Provider Obstetrics & Gynecology
DX: N91.2 Amenorrhea, unspecified (principal)
CPT/HCPCS: 36415; 84702

== ENCOUNTER → 2021-08-18 12:05 | Outpatient (CLI) | payer BC, SELFPAY ==
[2021-08-18 13:54] LABS: HCG Quantitative /Beta subunit 27.7 mIU/mL
== END ==
PROVIDERS: PCP Nurse Practitioner Family; Referring Provider Obstetrics & Gynecology; Visit Provider Obstetrics & Gynecology
DX: O03.4 Incomplete spontaneous abortion without complication (principal)
CPT/HCPCS: 36415; 84702

== ENCOUNTER → 2021-09-02 16:26 | Outpatient (CLI) | payer BC, SELFPAY ==
[2021-09-02 18:34] LABS: HCG Quantitative /Beta subunit < 2.4 mIU/mL
== END ==
PROVIDERS: PCP Nurse Practitioner Family; Referring Provider Obstetrics & Gynecology; Visit Provider Obstetrics & Gynecology
DX: O03.4 Incomplete spontaneous abortion without complication (principal)
CPT/HCPCS: 36415; 84702

== ENCOUNTER → 2021-09-22 14:17 | Outpatient (CLI) | payer BC, SELFPAY ==
[2021-09-22 15:41] LABS: COVID19 -Nasal RAPID Negative (Negative)
== END ==
PROVIDERS: PCP Nurse Practitioner Family; Visit Provider Obstetrics & Gynecology
DX: Z01.812 Encounter for preprocedural laboratory examination (principal); Z20.822 Contact with and (suspected) exposure to COVID-19
CPT/HCPCS: 87635

== ENCOUNTER 2021-09-23 10:16 | Day surgery (SDC) | payer BC, SELFPAY ==
[2021-09-15 14:56] VITALS: BMI 24.4
--- NOTE | 2021-09-23 | PATH_ITS ---
[facility] Accession Number: [id number] . 01 Material submitted: . cervix - CERVIX LEEP CONE . 01 Clinical history: . LEEP CONE BIOPSY OF CERVIX, TAGGED AT 12 O'CLOCK . 01 Diagnosis: Cervix, LEEP Cone: High-grade squamous intraepithelial lesion / KEELEY-2 present in the 12-3 o'clock quadrant with gland neck involvement. Patchy regions of low-grade squamous intraepithelial lesion / KEELEY-1 present in the 12-3, 3 - 6, and 6 - 9 o'clock quadrants. The inked, apparent endocervical margin is negative for dysplasia. The inked, apparent ectocervical margin is negative for dysplasia. Changes consistent with previous instrumentation present patchy distribution circumferentially. No invasive tumor identified. [facility] 09/27/2021 1345 Local . 01 Comment: The biopsy results correlate with Pap smear [id number]. . 01 Electronically signed: . Kaitlin Rodrigues MD, Pathologist NPI- [id number] . 01 Gross description: . Received in formalin and labeled with the patient's name and LEEP cone biopsy of cervix tagged at 12 o'clock and consists of a disrupted, oriented fragment of cervix with a suture at 12 o'clock, per the requisition. Reapproximated, the specimen measures 1.4 cm from 12 o'clock to 6 o'clock, 2.2 cm from 3 o'clock to 9 o'clock, and is excised to a depth of approximately 0.4 cm. The full thickness disruption occurs at approximately 6 o'clock. The ectocervix is pink-stacy and finely granular with a small amount of adherent mucohemorrhagic material. The reapproximated os is patent and patulous and measures 1.2 cm in greatest dimension. The specimen is inked as follows: Presumed endocervical margin orange and remaining stromal margin blue. The specimen is radially sectioned and submitted entirely as follows: . A1: 12 o'clock to 3 o'clock. A2: 3 o'clock to 6 o'clock. A3: 6 o'clock to 9 o'clock. A4: 9 o'clock to 12 o'clock. ([id number]) /[facility] 09/24/2021 [facility]9 Local . 01 Pathologist provided ICD-10: N87.1 . 01 CPT . 063239 Specimen Comment: A courtesy copy of this report has been sent to [phone] Performed at: 01 [facility] [address] [place] [address], [place], [place] [id number] MD Ziyad Reno MD Phone: [phone]
[2021-09-23 10:43] VITALS: BP 121/73; PULSE 78; RESP 16; TEMP 36.3; O2SAT 100; BMI 23.6
[2021-09-23] MEDS: LACTATED RINGERS 1,000 ML 100 ML IV (10:50)
--- NOTE | 2021-09-23 12:03 | PM.HP.1 ---
History of Present Illness History of Present Illness Date Patient Seen: 09/23/21 Time Patient Seen: 12:03 Chief complaint: SDC Narrative: Patient is a 36-year-old 5 para 2 with KEELEY 3 of the cervix. She presents for LEEP cone biopsy of the cervix. Patient History Medical History (Updated 08/10/21 @ 09:59 by Aga Le MD) 40 weeks gestation of Abnormal Pap smear of cervix Anxiety (~2018) History of gestational hypertension Migraine headache without aura Mild exercise-induced asthma Onycholysis Palpitations Post term at 41 weeks gestation Premature labor after 22 weeks and before 37 weeks without delivery Trichotillomania Surgical History (Updated 07/13/21 @ 17:59 by Aga Le MD) Anesthesia H/O breast augmentation (~2016) History of wisdom tooth extraction Hx of appendectomy (~2000) Family & Social History Family History (Updated 06/28/21 @ 23:05 by Tanisha Rowell) Father Atrial fibrillation Stroke Mother Anxiety Mental health problem Grandfather Cancer Grandmother Macular degeneration Grandfather Atrial fibrillation Diabetes mellitus Stroke Grandmother Atrial fibrillation Social History: household members spouse,children lives independently Yes Tobacco & Substance use: Smoking Status Never smoker alcohol intake former alcohol intake frequency a few times a month Substance Use Type does not use Meds Home Medications and Allergies Home Medications Medication Instructions Recorded Confirmed Type prenat.vits,kathy,yub-csku-rsulw 1 tab PO DAILY 07/01/21 09/23/21 History progesterone micronized 200 mg 200 mg PO BEDTIME 14 Days #14 cap 08/03/21 09/23/21 Rx capsule (Prometrium) Allergies Allergy/AdvReac Type Severity Reaction Status Date / Time No Known Drug Allergies Allergy Verified 09/23/21 10:41 Exam Vital Signs (past 8 hours): - 09/23/21 10:43 Temperature 97.4 F L Pulse Rate 78 Respiratory Rate 16 Blood Pressure 121/73 Pulse Oximetry 100 Oxygen Delivery Method Room Air Oxygen Flow Rate 0 Narrative Exam Narrative: HEENT: No thyromegaly, no anterior cervical or supraclavicular lymphadenopathy. Lungs:Clear to auscultation bilaterally, no wheezes. Cardiovascular: Regular rate and rhythm, no murmurs, rubs, or gallops. Abdomen: Well-healed scars. No hepatosplenomegaly. No masses palpable. External genitalia: Normal Vagina: Normal Cervix: Normal Bimanual exam: 6 week Week anteverted size uterus. Mobile.] Assessment & Plan Assessment & Plan narrative: Assessment: 36-year-old 5 para 2 with KEELEY 3 of the cervix Plan: LEEP cone biopsy of the cervix The risks, benefits, and alternatives to the procedure were explained to the patient. The risks including bleeding and infection. She understands these risks and agrees to proceed. A full par Q was held and consent form was signed. COVID-19 COVID-19 status: Negative Result date/Date tested (Pos, Neg/Pending): 09/23/21 Time Spent With Patient Time with patient: less than 30 minutes Critical Care time: I spent a total of [] minutes of critical care time on this patient's care today; this time is exclusive of procedural time.
--- NOTE | 2021-09-23 12:05 | PM.PREOP ---
Pre-operative Note COVID-19 COVID-19 status: Negative Result date/Date tested (Pos, Neg/Pending): 09/23/21 Criteria for continued procedure: Delay expected to result in less-positive ultimate med/surg outcome and Non-surgical alternatives not available or appropriate per current SOC Interval Note History & Physical reviewed/Exam performed by Physician: Yes Changes to H&P: No H&P completed within 30 days and has changed as indicated here:: 09/23/21
--- NOTE | 2021-09-23 13:02 | PM.GYNOP.1 ---
Operative Date/Time/Diagnoses Date of procedure: 09/23/21 Time of procedure: 13:02 Pre-op diagnosis: KEELEY 3 of the cervix Post-op diagnosis: same Procedure & Clinicians Procedure: Procedures Operation Date: 09/23/21 11:45 Actual Procedure Side Surgeon moose LEEP cone bx w. endocervix Aga Le MD Indications: KEELEY 3 by colposcopic biopsy of the cervix Surgeon: Aga Le Anesthesia Type: General (LMA) Operative Notes Findings: Lugol's light area surrounding the cervical os Closure Type: not applicable Specimen(s): other (LEEP cone biopsy of the cervix with suture at 12:00 p.m.) Estimated blood loss (mL): 25 Blood products transfused: none Procedure in detail: After informed consent was obtained, the patient was taken to the operating room where she was placed in the dorsal supine position. After adequate LMA general anesthesia was achieved, she was placed in the dorsal lithotomy position, and prepped and draped in the usual sterile fashion. A time-out was performed. A plastic coated bivalve speculum was placed into the vagina. A plastic coated single-tooth tenaculum was placed on the anterior lip of the cervix. The cervix was coated with Lugol solution. There were Lugol's light solution surrounding the cervical os circumferentially. Using the 15 mm loop with settings at 80 cut and 60 cautery, the Lugol's light area was excised in 1 piece. A stitch was placed at 12:00 p.m.. The ball cautery was used for hemostasis. There were 2 areas that were bleeding at the 5:00 a.m. and 9 o'clock position. Ysrbvn-pw-ufzgn sutures with 2 0 chromic were used for hemostasis. The plastic coated single-tooth tenaculum was removed from the anterior lip of the cervix. The plastic coated bivalve speculum was removed from the vagina. Sponge, lap, and instrument counts were correct x2. The patient tolerated the procedure well, and was taken to PACU in stable condition. Complications: none Post-operative Condition: stable Disposition: PACU Plan for aftercare: Home after recovery
[2021-09-23 13:06] VITALS: BP 102/81; PULSE 69; RESP 13; TEMP 36.9; O2SAT 98
[2021-09-23 13:11] VITALS: BP 112/64; PULSE 70; RESP 13; O2SAT 100
[2021-09-23 13:16] VITALS: BP 109/61; PULSE 66; RESP 12; O2SAT 100
[2021-09-23 13:21] VITALS: BP 112/62; PULSE 58; RESP 16; O2SAT 100
[2021-09-23 13:28] VITALS: BP 116/64; PULSE 64; RESP 13; TEMP 36.2; O2SAT 98
== END 2021-09-23 13:32 | disposition home or self-care (01) ==
PROVIDERS: PCP Nurse Practitioner Family; Referring Provider Obstetrics & Gynecology; Visit Provider Obstetrics & Gynecology
PROC: 0UBC7ZZ Excision of Cervix, Via Natural or Artificial Opening (ICD-10-PCS; CPT 57522; principal; 2021-09-23 11:45)
DX: N87.1 Moderate cervical dysplasia (principal)
CPT/HCPCS: 57522; J1100; J1885; J2250; J2405; J3010

== ENCOUNTER → 2021-11-18 12:06 | Outpatient (CLI) | payer BC, SELFPAY ==
[2021-11-18 13:43] LABS: HCG Quantitative /Beta subunit 1635.7 mIU/mL
== END ==
PROVIDERS: PCP Pediatrics; Referring Provider Obstetrics & Gynecology; Visit Provider Obstetrics & Gynecology
DX: Z32.01 Encounter for pregnancy test, result positive (principal)
CPT/HCPCS: 36415; 84702

== ENCOUNTER → 2021-11-20 08:41 | Outpatient (CLI) | payer BC, SELFPAY ==
[2021-11-20 09:47] LABS: HCG Quantitative /Beta subunit 4488.5 mIU/mL
== END ==
PROVIDERS: PCP Pediatrics; Referring Provider Obstetrics & Gynecology; Visit Provider Obstetrics & Gynecology
DX: Z32.01 Encounter for pregnancy test, result positive (principal)
CPT/HCPCS: 36415; 84702

== ENCOUNTER → 2021-11-24 10:21 | Outpatient (CLI) | payer BC, SELFPAY ==
[2021-11-24 12:29] LABS: HCG Quantitative /Beta subunit 20629 mIU/mL
== END ==
PROVIDERS: PCP Pediatrics; Referring Provider Obstetrics & Gynecology; Visit Provider Obstetrics & Gynecology
DX: O36.80X0 Pregnancy with inconclusive fetal viability, not applicable or unspecified (principal)
CPT/HCPCS: 36415; 84702

== ENCOUNTER → 2022-01-11 12:02 | Outpatient (CLI) | payer BC, SELFPAY ==
[2022-01-11 12:58] LABS: Add Manual Diff / Slide Review NO; Basophils Absolute Auto 0 /uL (0-100); Basophils Percent Auto 0.2 % (0-2); Eosinophils Absolute Auto 100 /uL (0-450); Eosinophils Percent Auto 1.2 % (2-4); Hematocrit 37.1 % (36-46); Hemoglobin 12.8 g/dL (12.0-16.0); Lymphocytes Absolute Auto 2000 /uL (1100-4500); Lymphocytes Percent Auto 24.7 % (25-40); Mean Corpuscular HGB Conc 34.6 % (30-36); Mean Corpuscular Hemoglobin 33.1 PG (26-34); Mean Corpuscular Volume 95.8 fL (80-100); Monocytes Absolute Auto 600 /uL (0-900); Monocytes Percent Auto 7.2 % (3-14); Neutrophils Absolute Auto 5300 /uL (1500-7000); Neutrophils Percent Auto 66.7 % (50-75); Platelet Count 197 X10^3/uL (150-400); Red Blood Cell Count 3.87 X10^6/uL (4.0-5.2); Red Cell Distribution Width 13.2 % (11.6-14.8); White Blood Cell Count 7.9 X10^3/uL (4.5-11.0)
[2022-01-11 13:22] LABS: Appearance Urine UA CLEAR; Bilirubin Urine UA NEGATIVE (NEGATIVE); Color Urine UA YELLOW; Glucose Urine UA NEGATIVE (Negative); Ketones Urine UA NEGATIVE (NEGATIVE); Leukocyte Esterase Urine UA NEGATIVE (NEGATIVE); Nitrite Urine UA NEGATIVE (Negative); Occult Blood Urine UA TRACE-LYSED (Negative); Protein Urine UA NEGATIVE (Negative); Urobilinogen Urine UA 0.2 E.U./dL (0.2)
[2022-01-11 13:28] LABS: pH Urine UA 6.5 (4.5-8.0)
[2022-01-11 19:01] LABS: Hepatitis B Surface Antigen NEGATIVE s/c (NEGATIVE); Rubella Antibody IgG 10.8 IU/mL (>15)
[2022-01-11 19:14] LABS: HIV 1 & 2 Ab/Ag 4th Gen Combo NEGATIVE (NEGATIVE); Hep C Virus Ab w/Reflex Quant NEGATIVE s/c (NEGATIVE)
[2022-01-12 06:32] LABS: RPR Screen Non Reactive (Non Reactive)
[2022-01-12 08:13] LABS: Varicella IgG Antibody 770 index (Immune >165)
== END ==
PROVIDERS: PCP Pediatrics; Referring Provider Obstetrics & Gynecology; Visit Provider Obstetrics & Gynecology
DX: O26.21 Pregnancy care for patient with recurrent pregnancy loss, first trimester (principal); Z3A.00 Weeks of gestation of pregnancy not specified
CPT/HCPCS: 36415; 80055; 81003; 86787; 86803; 86850; 86900; 86901; 87086; 87389

== ENCOUNTER → 2022-02-11 10:50 | Outpatient (CLI) | payer BC, SELFPAY ==
[2022-02-14 13:51] LABS: AFP Value 43.9 ng/mL (.); Gest Age on Col Date 17.1 weeks (.); Insulin Dep Diabetes No (.); OSBR Risk 1IN 8371 (.); Results Report (.); Test Results *Screen Negative* (.)
== END ==
PROVIDERS: Referring Provider Obstetrics & Gynecology; Visit Provider Obstetrics & Gynecology
DX: Z34.82 Encounter for supervision of other normal pregnancy, second trimester (principal); Z3A.17 17 weeks gestation of pregnancy
CPT/HCPCS: 36415; 82105

== ENCOUNTER → 2022-03-07 10:22 | Outpatient (CLI) | payer BC, SELFPAY ==
--- NOTE | 2022-03-07 10:23 | DI.US.S_ITS ---
PROCEDURE: US OB >= 14 WEEKS FETUS INDICATIONS: ANATOMY OUTSIDE/PRIOR DATING DATA: Last menstrual period (LMP): 10/14/2021 LMP-based estimated date of delivery (SOMMER): 07/21/2022. First dating scan (date and location): 11/24/2021. Estimated date of delivery (SOMMER) from first dating scan: 07/18/2022. The calculations are made using the ultrasound SOMMER of 07/18/2022. TECHNIQUE: Real-time scanning was performed of the fetus, with image documentation and biometric measurements. COMPARISON: [facility], , OB >= 14 WEEKS FETUS, 02/11/2022, 10:48. FINDINGS: General: A single living intrauterine gestation is present. Presentation: Variable. Placenta: Placental position is left posterior fundal , without previa. Amniotic fluid index: 11.3 cm, normal range is 5-24 cm. Single deepest vertical pocket is 4.7 cm. heart rate: 139 beats per minute. Maternal cervical canal: 6.3 cm long. Normal lower limit is 2.5 cm. biometrics: Biparietal diameter: 19 weeks 6 days Head circumference: 20 weeks Abdominal circumference: 20 weeks 1 day Femur length: 20 weeks 1 day Clinically estimated gestational age: 21 weeks Composite gestational age from present scan: 20 weeks Estimated weight and percentile: 334 g; 10 percentile Anatomic survey: Neuro: Ventricles are non-dilated at less than 10 mm. Cisterna magna is normal at 3-11 mm. Cerebellum is normal in size and morphology. Nuchal skin fold: Normal at less than 6 mm between 14-21 weeks gestational age. Face: Nose and lips, facial profile are normal. Spine: No evidence for spina bifida. Heart: 4-chambered heart is present, with normal ventricular outflow tracts. Diaphragm: Diaphragm is intact. Stomach: Left-sided stomach is present. Kidneys: No hydronephrosis. Normal is less than 5 mm in 2nd trimester, less than 7 mm in 3rd trimester. Cord: 3-vessel cord has orthotopic insertion. Bladder: Normal in size. Extremities: All 4 extremities identified. IMPRESSION: 1. Single living IUP redemonstrated and interval growth is lower limits of normal with estimated weight 10 percentile. 2. Normal anatomic survey. We strive to produce accurate, complete, and clear reports of imaging services. To assist us in improving patient care, this report was composed using standard report templates and voice recognition software. Therefore, it may contain abnormal punctuation, insertions and/or omissions. Occasional wrong-word or sound-alike substitutions may occur. Though we review the report and make efforts to correct it, we do recommend that the report be read carefully in proper context to recognize any text inaccuracies. Dictated by: Sudeep SOLIMAN Interpreted: Arnulfo Hoang MD on 03/07/2022 at 12:44 Transcribed by: ILANA on 03/07/2022 at 12:47 Approved by: Arnulfo Hoang M.D. on 03/07/2022 at 13:57
== END ==
PROVIDERS: Referring Provider Obstetrics & Gynecology; Visit Provider Obstetrics & Gynecology
DX: Z34.82 Encounter for supervision of other normal pregnancy, second trimester (principal); Z3A.20 20 weeks gestation of pregnancy
CPT/HCPCS: 76811

== ENCOUNTER → 2022-04-26 09:17 | Outpatient (CLI) | payer BC, SELFPAY ==
[2022-04-26 10:44] LABS: Hematocrit 32.9 % (36-46)
[2022-04-26 11:04] LABS: GTT (PREG) 1 Hour PP 50gm Dose 69 mg/dL (76-139)
== END ==
PROVIDERS: Referring Provider Obstetrics & Gynecology; Visit Provider Obstetrics & Gynecology
DX: Z34.82 Encounter for supervision of other normal pregnancy, second trimester (principal); Z3A.26 26 weeks gestation of pregnancy
CPT/HCPCS: 36415; 82950; 85014; 85018

== ENCOUNTER 2022-06-21 11:10 | Observation (INO) | payer BC, SELFPAY ==
[2022-06-21 11:42] LABS: Bacteria Urine Few (2-10); Culture Indicated Urine Cult Not Indicated; RBC Urine None Seen (0-5/HPF); Squamous Epithelial Cell Urine 1-5 /HPF (0-5/HPF); WBC Urine 1-5/HPF (0-5/HPF)
[2022-06-21 12:35] LABS: Appearance Urine UA CLEAR; Bilirubin Urine UA NEGATIVE (NEGATIVE); Color Urine UA YELLOW; Glucose Urine UA NEGATIVE (Negative); Ketones Urine UA NEGATIVE (NEGATIVE); Leukocyte Esterase Urine UA NEGATIVE (NEGATIVE); Nitrite Urine UA NEGATIVE (Negative); Occult Blood Urine UA NEGATIVE (Negative); Protein Urine UA NEGATIVE (Negative); Specific Gravity Urine UA <=1.005 (1.000-1.035); Urobilinogen Urine UA 0.2 E.U./dL (0.2)
[2022-06-21 13:40] LABS: Hematocrit 36.1 % (36-46); Hemoglobin 12.3 g/dL (12.0-16.0); Mean Corpuscular HGB Conc 34.1 % (30-36); Mean Corpuscular Hemoglobin 33.3 PG (26-34); Mean Corpuscular Volume 97.6 fL (80-100); Platelet Count 185 X10^3/uL (150-400); Red Cell Distribution Width 13.7 % (11.6-14.8); White Blood Cell Count 9.3 X10^3/uL (4.5-11.0)
== END 2022-06-21 13:50 | disposition home or self-care (01) ==
PROVIDERS: Admitting Provider Obstetrics & Gynecology; Referring Provider Obstetrics & Gynecology; Visit Provider Obstetrics & Gynecology
DX: O26.893 Other specified pregnancy related conditions, third trimester (principal); R10.9 Unspecified abdominal pain; Z3A.35 35 weeks gestation of pregnancy
CPT/HCPCS: 36415; 59025; 59050; 81003; 81015; 85027; G0378; G0379

== ENCOUNTER → 2022-06-29 13:38 | Outpatient (CLI) | payer BC, SELFPAY ==
[2022-06-30 15:36] LABS: Strep Grp B PCR NEG for Grp B Strep
== END ==
PROVIDERS: Visit Provider Obstetrics & Gynecology
DX: Z34.83 Encounter for supervision of other normal pregnancy, third trimester (principal); Z3A.36 36 weeks gestation of pregnancy
CPT/HCPCS: 87653

== ENCOUNTER 2022-06-29 14:09 | Outpatient (CLI) | payer BC, SELFPAY | END 2022-06-29 14:50 | disposition home or self-care (01) | LOC: OB 07-04 08:20 | PROVIDERS: Referring Provider Obstetrics & Gynecology; Visit Provider Obstetrics & Gynecology | DX: Z03.71 Encounter for suspected problem with amniotic cavity and membrane ruled out (principal); O48.0 Post-term pregnancy; Z3A.40 40 weeks gestation of pregnancy; Z34.83 Encounter for supervision of other normal pregnancy, third trimester; Z3A.36 36 weeks gestation of pregnancy | CPT/HCPCS: 59025; 84112; 87653; G0378; G0379 ==

== ENCOUNTER 2022-07-17 19:21 | Inpatient (IN) | payer BC, SELFPAY ==
[2022-07-17 20:18] VITALS: BP 117/75
[2022-07-17 20:21] LABS: Add Manual Diff / Slide Review NO; Basophils Absolute Auto 100 /uL (0-100); Basophils Percent Auto 0.7 % (0-2); Eosinophils Absolute Auto 100 /uL (0-450); Hematocrit 35.9 % (36-46); Hemoglobin 12.2 g/dL (12.0-16.0); Lymphocytes Absolute Auto 3100 /uL (1100-4500); Mean Corpuscular HGB Conc 33.9 % (30-36); Mean Corpuscular Hemoglobin 32.9 PG (26-34); Mean Corpuscular Volume 97.2 fL (80-100); Monocytes Absolute Auto 1000 /uL (0-900); Monocytes Percent Auto 7.4 % (3-14); Neutrophils Absolute Auto 8700 /uL (1500-7000); Neutrophils Percent Auto 66.9 % (50-75); Platelet Count 183 X10^3/uL (150-400); Red Blood Cell Count 3.69 X10^6/uL (4.0-5.2); Red Cell Distribution Width 13.8 % (11.6-14.8)
[2022-07-17] MEDS: miSOPROStoL 25 MCG TABLET 50 MCG PO (20:22)
[2022-07-18] MEDS: miSOPROStoL 25 MCG TABLET 50 MCG PO (02:31)
--- NOTE | 2022-07-18 04:53 | PM.OBHP.1 ---
OB HPI Date/Time Date of admission: 07/17/22 Date Patient Seen: 07/18/22 Time Patient Seen: 04:53 History of Present Condition Chief complaint: Induction : 6 Para: 2 Estimated Date of Delivery: 07/21/22 Estimated Gestational Age (weeks): 39 Narrative: Chandni King is a 37 year old female admitted for induction for advanced maternal age Indications Indication for induction OB: other (Advanced maternal age) History of Present care: good care, initiated at week # (12), number of visits (10) and pounds weight gain (51) Dating criteria: LMP confirmed by 1st trimester US Ultrasounds: normal mid trimester US Obstetrical complications: none Medical complications: none Preadmission Labs Blood type: O (+) positive -: Antibody screen: negative, GBS status: negative, HBsAG: negative, HIV: negative and RPR/VDLR: negative -: Chlamydia screen: not detected and Gonorrhea screen: not detected -: Rubella: not immune and Varicella: immune HCAB: negative Cell-free DNA: Normal 1 hr GTT: 69 Prior (ies) History: Del. DateGA/WeeksLabor LgthBirth WtSexRouteOutcomeAnesthesiaPlace DelvBreastfeedPreg CompName 08/13/09 40 24 6 lb 11 oz Malevaginallive - full termepiduralProvidence Lloyd 9 mo induced hyper-Brandt 12/28/16 8 elective 06/01/18 41 8 7 lb 6 oz Femalevaginallive - full termepiduralIH 3 mo, she wasn't gaining wgt noneLaney 04/03/21 5-6 spontaneous 06/22/21 10 spontaneous Evaluation Evaluation Baseline heart rate: 130 Variability: Moderate (11-25) monitor accelerations: Present Monitor Decelerations: Absent Contraction Frequency (minutes): 5 Uterine Contraction Intensity: Mild Category of Tracing: Reactive Status: Category l Dilation (cm): 1 Effacement (%): 50 station: -2 Position of cervix: mid Consistency: soft [facility] Medical History (Updated 05/31/22 @ 10:32 by Aga Le MD) Abnormal Pap smear of cervix Anxiety (~2018) ASCUS with positive high risk HPV History of gestational hypertension Lump of right breast (08/2018) Migraine headache without aura Mild exercise-induced asthma Onycholysis Palpitations Premature labor after 22 weeks and before 37 weeks without delivery Trichotillomania Surgical History (Updated 12/20/21 @ 14:14 by Dennise Acharya RN) Anesthesia H/O breast augmentation (~2016) H/O LEEP History of wisdom tooth extraction Hx of appendectomy (~2000) Family History (Updated 12/20/21 @ 14:16 by Dennise Acharya RN) Father Atrial fibrillation Stroke Congestive heart failure Mother Anxiety Grandfather Lung cancer Grandmother Macular degeneration Dementia Grandfather Atrial fibrillation Diabetes mellitus Stroke Grandmother Atrial fibrillation Social History marital status: number of children: 2 household members: spouse and children lives independently: Yes housing: house pets and animals: Yes (Dog, and snake) 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 status: employed current occupational exposures/hazards: No special stacy needs: No travel history: over 6 months ago seatbelt use: always water heater temp set < 120 deg: Yes working smoke detector in home: Yes fire extinguisher in home: Yes carbon monox detector in home: Yes firearms in home: No do you feel safe at home: Yes Smoking Status: Never smoker second hand exposure: No alcohol intake: former (1-2 glasses wine/month when not ) substance use type: does not use during the past year weight has: remained stable well-balanced diet: daily or most days daily servings fruits/ve-4 caffeine: Yes (aware of 200mg limit) Type(s) of exercise: bicycling (stationary bike), regular exercise and weight lifting frequency: 3-4 times per week Meds Home Medications and Allergies Home Medications Medication Instructions Recorded Confirmed Type prenat.vits,kathy,rbt-vafu-wrzeh 1 tab PO DAILY 07/01/21 07/17/22 History ferrous sulfate 142 mg (45 mg 142 mg PO DAILY 05/17/22 07/17/22 History iron) tablet,extended release (Slow Fe) Allergies Allergy/AdvReac Type Severity Reaction Status Date / Time No Known Drug Allergies Allergy Verified 07/17/22 20:47 Review of Systems Review of Systems Narrative: Good movement. No leakage of fluid. No headaches, scotomata, epigastric pain. OB Exam Vital signs Blood Pressure: 103/54 Pulse Rate: 79 Temperature: 97.2 F Narrative Exam Narrative: HEENT exam within normal limits. Lungs are clear to auscultation percussion. Heart is regular rate and rhythm no S3-S4 or murmurs. Abdomen is gravid. Fetus is vertex. Extremities without edema and nontender Objective Labs 07/17/22 20:00 Labs: Laboratory Results - last 24 hr 07/17/22 07/17/22 20:00 20:00 WBC 13.0 H RBC 3.69 L Hgb 12.2 Hct 35.9 L MCV 97.2 MCH 32.9 MCHC 33.9 RDW 13.8 Plt Count 183 Neut % (Auto) 66.9 Lymph % (Auto) 24.0 L Wayne % (Auto) 7.4 Eos % (Auto) 1.0 L Baso % (Auto) 0.7 Neut # (Auto) 8700 H Lymph # (Auto) 3100 Wayne # (Auto) 1000 H Eos # (Auto) 100 Baso # (Auto) 100 Blood Type O Positive Antibody Screen Negative Assessment and Plan Assessment and Plan Assessment and Plan narrative: 39 week 4 day with advanced maternal age admitted for Prostin followed by Pitocin induction.
[2022-07-18 05:01] VITALS: BP 103/54; PULSE 79; TEMP 36.2
[2022-07-18] MEDS: LACTATED RINGERS 1,000 ML 100 ML IV ×2 (09:28→14:36)
[2022-07-18] MEDS: OXYTOCIN PREMIX 30 UNIT/500 ML PLAST..BAG IV (09:28)
--- NOTE | 2022-07-18 17:39 | PM.AN.REGBLK ---
Regional Block Pre-procedure Procedure: Continuous Lumbar Epidural for L&D Attending OB provider: Mili Fuchs PMH/ROS narrative: term induction, no complications ASA Class: II Labs: Hct 35.9 % (36-46) L 07/17/22 20:00 Plt Count 183 X10^3/uL (150-400) 07/17/22 20:00 Medications: Current Medications Generic Name Dose Route Start Last Admin Trade Name Freq PRN Reason Stop Dose Admin Acetaminophen 650 mg 07/17/22 19:32 Acetaminophen 325 Mg Tablet PO Q4HR PRN Fever/Mild Pain (1-3) Calcium Carbonate 1,000 mg 07/17/22 19:32 Calcium Carbonate 500 Mg Tab PO Q2H PRN Dyspepsia Diphenhydramine HCl 25 mg 07/18/22 16:29 Diphenhydramine 50 Mg/Ml Vial IV Q10M PRN Pruritis Lactated Ringer's 1,000 mls @ 100 mls/hr 07/17/22 19:45 07/18/22 14:36 Lactated Ringers IV 100 mls/hr CONT DANIEL Administration Oxytocin/Lactated Ringer's 30 unit in 500 mls @ 1 mls/hr 07/18/22 08:43 07/18/22 09:28 Oxytocin Premix IV 1 milliunit/min TITRATE DANIEL 1 mls/hr Administration Protocol 1 MILLIUNIT/MIN FENT 2MCG/ML BUPIV 0.125% EPI 200 mcg in 100 mls @ 6 mls/hr 07/18/22 16:30 Fentanyl/Bupiv/Ns 2mcg/Ml - 0.125% EPIDURAL CONT DANIEL Morphine Sulfate 4 mg 07/17/22 19:32 Morphine 4 Mg/Ml Inj IV Q4HR PRN Pain, Severe (7-10) Nalbuphine HCl 2.5 mg 07/18/22 16:29 Nalbuphine 20 Mg/Ml Ampul IV Q10M PRN Pruritis Zolpidem Tartrate 5 mg 07/17/22 19:32 Zolpidem 5 Mg Tablet PO BEDTIME PRN Sleep Allergies: Allergies Allergy/AdvReac Type Severity Reaction Status Date / Time No Known Drug Allergies Allergy Verified 07/17/22 20:47 Procedure Insertion date: 07/18/22 Insertion time: 14:40 Prep/Local: betadine x3 and 1% lidocaine Interspace: L3-4 Patient position: sitting Needle: 18 gauge Hustead (CSE: 27g Pencan through Hustead. Clear CSF, 2.5mg MPF bupivacaine) Loss of resistance with: saline NISHA at (cm): 6 Catheter in SPACE (cm): 5 Insertion: No CSF, Yes Blood, No Paresthesia with insertion, No Paresthesia with injection and Yes Test dose reaction Initial Medications TEST DOSE time: 14:44 TEST DOSE: 1.5% lidocaine with epinephrine 1:200k (mL): 3 Infusion Subsequent interventions: Positive test dose, HR 100 --> 130's briefly. Catheter removed. Pt comfortable. VSS. pt requested no replacement at this time. approximately 1940. Post-procedure Anesthesia time START: 16:32 Anesthesia time END: 17:42 Post-procedure Anesthesia Assessment: Yes CV function: HR/BP stable, Yes Resp function: RR/sat/airway adequate, Yes Post-op hydration adequate, Yes Pain control adequate, Yes Mental status appropriate and No Anesthesia complications
--- NOTE | 2022-07-18 19:53 | P.PCNOB_ITS ---
Labor & Delivery Delivery date: 07/18/22 Cervical ripening method: per misoprostal protocol Induction method: per pitocin protocol Delivery monitor: external FHT and external uterine Route of delivery: L&D Laceration Description: Perineal - 1st Degree (No suture required) Estimated blood loss (mL): 100 Narrative: Patient arrived on Labor and delivery for induction for advanced maternal age at term. She received Cytotec orally. Her cervix became more favorable and IV Pitocin was started. She had a failed attempt at epidural catheter. heart tones category 1 to category 2 throughout labor. She had spontaneous rupture membranes and progressed to complete dilation rapidly. She used a small amount nitrous oxide with pushing. The patient delivered spontaneously, over an intact perineum. The viable female was placed on the maternal abdomen. After the cord stopped pulsating the cord was clamped, cut, and cord bloods obtained. The placenta delivered spontaneously, intact, with 3 vessels. There were no cervical or vaginal tears. There is a small perineal tear in the posterior fourchette that was not bleeding so no sutures were performed. Estimated blood loss 100 cc. Both infant mother doing well. [place] Baby 1: Infant gender: Female Presentation: vertex Position: Right Occiput Anterior Placenta delivery description: Spontaneous Cord Vessel Description: 3 Vessels score (1 min): 8 score (5 min): 9 Plan for aftercare: Routine care
[2022-07-18] MEDS: IBUPROFEN 600 MG TABLET PO (20:33)
[2022-07-18] MEDS: ACETAMINOPHEN 325 MG TABLET 650 MG PO (20:34)
[2022-07-18] MEDS: DERMOPLAST SPRAY 20% 60 ML 1 SPRAY TOP (20:34)
[2022-07-19] MEDS: ACETAMINOPHEN 325 MG TABLET 650 MG PO ×2 (03:02→10:41)
[2022-07-19] MEDS: IBUPROFEN 600 MG TABLET PO ×2 (03:03→10:42)
[2022-07-19 06:30] LABS: Add Manual Diff / Slide Review NO; Basophils Absolute Auto 100 /uL (0-100); Eosinophils Absolute Auto 100 /uL (0-450); Eosinophils Percent Auto 0.7 % (2-4); Hemoglobin 12.2 g/dL (12.0-16.0); Lymphocytes Absolute Auto 3000 /uL (1100-4500); Lymphocytes Percent Auto 19.6 % (25-40); Mean Corpuscular HGB Conc 33.8 % (30-36); Mean Corpuscular Volume 97.7 fL (80-100); Monocytes Absolute Auto 1100 /uL (0-900); Monocytes Percent Auto 6.9 % (3-14); Neutrophils Absolute Auto 10900 /uL (1500-7000); Neutrophils Percent Auto 71.8 % (50-75); Platelet Count 163 X10^3/uL (150-400); Red Blood Cell Count 3.68 X10^6/uL (4.0-5.2); Red Cell Distribution Width 13.7 % (11.6-14.8); White Blood Cell Count 15.1 X10^3/uL (4.5-11.0)
--- NOTE | 2022-07-19 07:42 | PM.OBDS.1 ---
Discharge Providers Provider Date of admission: 07/17/22 19:21 Discharge Date: 07/19/22 Consults: 07/19/22 19:51 Consult to Advertising Dispatch Clerk Routine Comment: Discharge provider: Mili Fuchs MD Summary Hospital Course Date Patient Seen: 07/19/22 Time Patient Seen: 07:42 Diagnoses: 39 week gestation advanced maternal age admitted for induction which resulted in vaginal delivery Hospital Course: Patient was admitted for induction for advanced maternal age at 39 weeks. She received prostaglandins and Pitocin. She had a failed epidural catheter attempt. She had a spontaneous vaginal delivery. Patient denies headaches, scotomata, epigastric pain. She is urinating and ambulating well. She is breast-feeding without difficulty. She has minimal pain. Peripartum Data Infant Delivery Method: Natural Vaginal Laceration Description: Perineal - 1st Degree (No repair needed) Procedures: Failed epidural catheter, spontaneous vaginal delivery complications: none 1: Gender: Female Disposition of : home Discharge Diagnosis (1) Vaginal delivery: Status: Acute Status at Discharge Cognitive/behavioral status at discharge: oriented Functional status at discharge: independent ambulation Overall status at discharge: patient is progressing back to baseline Time Spent with Patient Time attestation: Total time spent providing and/or coordinating discharge services: Time spent: Less than 30 minutes Objective Labs 07/19/22 06:15 Labs: Laboratory Results - last 24 hr 07/19/22 06:15 WBC 15.1 H RBC 3.68 L Hgb 12.2 Hct 36.0 MCV 97.7 MCH 33.0 MCHC 33.8 RDW 13.7 Plt Count 163 Neut % (Auto) 71.8 Lymph % (Auto) 19.6 L Howell % (Auto) 6.9 Eos % (Auto) 0.7 L Baso % (Auto) 1.0 Neut # (Auto) 68275 H Lymph # (Auto) 3000 Howell # (Auto) 1100 H Eos # (Auto) 100 Baso # (Auto) 100 Exam Vital Signs (past 8 hours): Blood pressure 112/67, pulse of 77, temperature 96.7 Narrative Exam Narrative: Abdomen is soft, nontender. Uterus is firm, at U, nontender. Mild lochia. Extremities without edema and nontender. Discharge Plan Discharge Plan Patient Disposition: Home Discharge orders & Medications Prescriptions: Continued prenat.vits,kathy,[id number] Tablet 1 tab PO DAILY Slow Fe 142 mg (45 mg iron) tablet extended release 142 mg PO DAILY Follow up/Referrals: Aga Le MD [Physician] - 6 Weeks Diet/Activity/Treatments Diet: Regular Activity: Nothing in vagina for 6 weeks Skin/Wound/Dressing Care Report to your healthcare provider any signs of infection, such as:: chills, fever Visit Report/Discharge Packet Stand Alone Forms: Patient Portal/API
[2022-07-19] MEDS: LANOLIN OINT 7 GM 1 APPLIC TOP (10:42)
== END 2022-07-19 15:15 | disposition home or self-care (01) | DRG 807 ==
PROVIDERS: Admitting Provider Specialist; Referring Provider Specialist; Visit Provider Specialist
DX: O76 Abnormality in fetal heart rate and rhythm complicating labor and delivery (principal); Z37.0 Single live birth; Z3A.39 39 weeks gestation of pregnancy
CPT/HCPCS: 36415; 59050; 59200; 59400; 59409; 85025; 86850; 86900; 86901; G0379; J2590

== ENCOUNTER 2022-08-01 18:16 | Emergency (ER) | payer BC, SELFPAY ==
[2022-08-01] VITALS (8 sets, daily range): BP systolic 103–145; BP diastolic 67–83; PULSE 57–74; RESP 15–25; TEMP 36.6; O2SAT 97–100; BMI 27.7
--- NOTE | 2022-08-01 18:25 | DI.RAD.S_ITS ---
PROCEDURE: XR CHEST 1V INDICATIONS: chest pain TECHNIQUE: One view of the chest was acquired. COMPARISON: None. FINDINGS: Surgical changes and devices: None. Lungs and pleura: Lungs are clear. No pleural effusions or pneumothorax. Mediastinum: Mediastinal contours appear normal. Heart size is normal. Bones and chest wall: No suspicious bony lesions. Overlying soft tissues appear unremarkable. IMPRESSION: No acute cardiopulmonary abnormality. Dictated by: Joe Cannon M.D. on 08/01/2022 at 19:06 Approved by: Joe Cannon M.D. on 08/01/2022 at 19:06
[2022-08-01 18:44] LABS: Add Manual Diff / Slide Review NO; Basophils Absolute Auto 100 /uL (0-100); Basophils Percent Auto 0.9 % (0-2); Eosinophils Absolute Auto 300 /uL (0-450); Eosinophils Percent Auto 2.6 % (2-4); Hematocrit 44.8 % (36-46); Hemoglobin 15.1 g/dL (12.0-16.0); Lymphocytes Absolute Auto 4100 /uL (1100-4500); Mean Corpuscular HGB Conc 33.8 % (30-36); Mean Corpuscular Hemoglobin 32.8 PG (26-34); Monocytes Absolute Auto 600 /uL (0-900); Monocytes Percent Auto 5.6 % (3-14); Neutrophils Absolute Auto 5000 /uL (1500-7000); Neutrophils Percent Auto 49.9 % (50-75); Platelet Count 339 X10^3/uL (150-400); Red Blood Cell Count 4.62 X10^6/uL (4.0-5.2); Red Cell Distribution Width 13.4 % (11.6-14.8)
[2022-08-01 18:56] LABS: HEMOLYSIS < 15 (0-50); Potassium 3.7 mmol/L (3.4-5.1)
[2022-08-01 18:57] LABS: Alanine Aminotransferase 39 IU/L (<35); Albumin 4.6 g/dL (3.5-5.0); Albumin Globulin Ratio 1.2 (1.0-2.8); Alkaline Phosphatase 139 U/L (38-126); Aspartate Aminotransferase 37 IU/L (14-36); BUN Creatinine Ratio 17.7 (6-22); Bilirubin Total 0.3 mg/dL (0.2-1.3); Blood Urea Nitrogen 17 mg/dL (7-17); Calcium 9.7 mg/dL (8.4-10.2); Carbon Dioxide 29 mmol/L (22-32); Chloride 100 mmol/L (98-107); Creatine Kinase 128 U/L (30-135); Estimated Glomerular Filt Rate > 60 mL/min (>60); Globulin 3.8 g/dL (1.7-4.1); Glucose 90 mg/dL (70-100); Lipase 96 U/L (23-300); Sodium 138 mmol/L (137-145); Total Protein 8.4 g/dL (6.3-8.2)
--- NOTE | 2022-08-01 18:57 | ED_ITS ---
HPI - Chest Pain General Chief Complaint: Chest Pain Stated Complaint: LEFT CHEST PAIN 2 WKS POST COUGH Time Seen by Provider: 08/01/22 18:28 Source: patient Mode of arrival: Ambulatory Limitations: no limitations History of Present Illness HPI narrative: Patient is a 37-year-old female. She is 2 weeks from a vaginal delivery. She was induced one-week early for advanced maternal age. Who was an uncomplicated otherwise. She is . She states that earlier today she started to have left-sided chest discomfort. It is localized to the center of the left side of her chest. Does not radiate anywhere from this. Not worse with palpation or movement. No nausea vomiting. No belly pain. No radiation to her left arm. There is no skin changes over the area. No breast tenderness. No abnormal nipple discharge. Patient denies any cough or fevers. Related Data Home Medications Medication Instructions Recorded Confirmed prenat.vits,kathy,[id number] 1 tab PO DAILY 07/01/21 07/17/22 ferrous sulfate 142 mg (45 mg 142 mg PO DAILY 05/17/22 07/17/22 iron) tablet,extended release (Slow Fe) Allergies Allergy/AdvReac Type Severity Reaction Status Date / Time No Known Drug Allergies Allergy Verified 08/01/22 18:33 Review of Systems Constitutional Constitutional: Reports system reviewed and no additional complaints, except as documented Cardiovascular Cardiovascular: Reports system reviewed and no additional complaints, except as documented Respiratory Respiratory: Reports system reviewed and no additional complaints, except as documented Gastrointestinal Gastrointestinal: Reports system reviewed and no additional complaints, except as documented Integumentary/Breasts Skin/Breast: Reports system reviewed and no additional complaints, except as documented Hematologic/Lymphatic On Anticoagulants: No Patient History Medical History Abnormal Pap smear of cervix Anxiety (~2018) ASCUS with positive high risk HPV History of gestational hypertension Lump of right breast (08/2018) Migraine headache without aura Mild exercise-induced asthma Onycholysis Palpitations Premature labor after 22 weeks and before 37 weeks without delivery Trichotillomania Surgical History (Updated 12/20/21 @ 14:14 by Dennise Acharya RN) Anesthesia H/O breast augmentation (~2016) H/O LEEP History of wisdom tooth extraction Hx of appendectomy (~2000) Family History (Updated 12/20/21 @ 14:16 by Dennise Acharya RN) Father Atrial fibrillation Stroke Congestive heart failure Mother Anxiety Grandfather Lung cancer Grandmother Macular degeneration Dementia Grandfather Atrial fibrillation Diabetes mellitus Stroke Grandmother Atrial fibrillation Social History marital status: number of children: 2 household members: spouse and children lives independently: Yes housing: house pets and animals: Yes (Dog, and snake) 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 current occupational exposures/hazards: No special stacy needs: No travel history: over 6 months ago seatbelt use: always water heater temp set < 120 deg: Yes working smoke detector in home: Yes fire extinguisher in home: Yes carbon monox detector in home: Yes firearms in home: No do you feel safe at home: Yes Smoking Status: Never smoker second hand exposure: No alcohol intake: former (1-2 glasses wine/month when not ) substance use type: does not use during the past year weight has: remained stable well-balanced diet: daily or most days daily servings fruits/ve-4 caffeine: Yes (aware of 200mg limit) Type(s) of exercise: bicycling (stationary bike), regular exercise and weight lifting frequency: 3-4 times per week Smoking Status: Never smoker alcohol intake frequency: a few times a month Substance Use Type: does not use Exam Initial Vital Signs Initial Vital Signs: Vital Signs Temperature 98 F 08/01/22 18:30 Pulse Rate 74 08/01/22 18:30 Respiratory Rate 16 08/01/22 18:30 Blood Pressure 145/83 H 08/01/22 18:30 Pulse Oximetry 100 08/01/22 18:30 Oxygen Delivery Method Room Air 08/01/22 18:30 Const General: cooperative HENMT Head: normal to inspection and normocephalic Chest Chest: No crepitus and No tenderness Resp Effort & Inspection: normal respiratory effort Auscultation: clear to auscultation bilaterally Cardio Rate: regular rate Rhythm: regular rhythm GI Inspection: normal to inspection Skin General: no rashes or lesions noted Neuro General: patient alert, patient awake and moves all extremities Extrem General: normal to inspection and capillary refill normal Scores HEART Score Heart Score history: Slightly Suspicious Heart Score EKG: Normal Heart Score Age: < 45 years old Heart Score risk factors: No known risk factors Heart Score troponin: < or = to normal limit Heart Score Total: 0 Course Orders Ordered: ED Orders 08/01/22 20:32 Troponin & CK Cardiac Panel Stat Discontinued Medications Aspirin (Aspirin 81 Mg Chew Tab) 324 mg PO NOW ONE Stop: 08/01/22 18:26 Last Admin: 08/01/22 18:33 Dose: Not Given Documented By: KLAbraham Vital Signs Vital signs: Vital Signs - 8 hr 08/01/22 18:30 Temperature 98 F Pulse Rate 74 Respiratory Rate 16 Blood Pressure 145/83 H Pulse Oximetry 100 Oxygen Delivery Method Room Air MDM - Chest Pain Lab Data Attestation: I reviewed the patient's lab results. 08/01/22 18:35 08/01/22 18:35 Labs: Lab Results 08/01/22 08/01/22 08/01/22 Range/Units 18:35 18:35 18:35 WBC 10.0 (4.5-11.0) X10^3/uL RBC 4.62 (4.0-5.2) X10^6/uL Hgb 15.1 (12.0-16.0) g/dL Hct 44.8 (36-46) % MCV 97.0 (80-100) fL MCH 32.8 (26-34) PG MCHC 33.8 (30-36) % RDW 13.4 (11.6-14.8) % Plt Count 339 (150-400) X10^3/uL Neut % (Auto) 49.9 L (50-75) % Lymph % (Auto) 41.0 H (25-40) % Hubbard % (Auto) 5.6 (3-14) % Eos % (Auto) 2.6 (2-4) % Baso % (Auto) 0.9 (0-2) % Neut # (Auto) 5000 (3686-2827) /uL Lymph # (Auto) 4100 (3398-6530) /uL Hubbard # (Auto) 600 (0-900) /uL Eos # (Auto) 300 (0-450) /uL Baso # (Auto) 100 (0-100) /uL D-Dimer 438 (<500) ng/ml Sodium 138 (137-145) mmol/L Potassium 3.7 (3.4-5.1) mmol/L Chloride 100 (98-107) mmol/L Carbon Dioxide 29 (22-32) mmol/L BUN 17 (7-17) mg/dL Creatinine 0.96 (0.52-1.04) mg/dL Estimated GFR > 60 (>60) mL/min BUN/Creatinine Ratio 17.7 (6-22) Glucose 90 (70-100) mg/dL Calcium 9.7 (8.4-10.2) mg/dL Magnesium 2.0 (1.6-2.3) mg/dL Total Bilirubin 0.3 (0.2-1.3) mg/dL AST 37 H (14-36) IU/L ALT 39 H (<35) IU/L Alkaline Phosphatase 139 H (38-126) U/L Total Creatine Kinase 128 (30-135) U/L CK-MB (CK-2) 1.27 (<2.37) ng/mL CK-MB (CK-2) Rel Index 1.0 L (1.5-5.0) % Troponin I < 0.012 (0.01-0.034) ng/mL Total Protein 8.4 H (6.3-8.2) g/dL Albumin 4.6 (3.5-5.0) g/dL Globulin 3.8 (1.7-4.1) g/dL Albumin/Globulin Ratio 1.2 (1.0-2.8) Lipase 96 (23-300) U/L 08/01/22 Range/Units 20:32 WBC (4.5-11.0) X10^3/uL RBC (4.0-5.2) X10^6/uL Hgb (12.0-16.0) g/dL Hct (36-46) % MCV (80-100) fL MCH (26-34) PG MCHC (30-36) % RDW (11.6-14.8) % Plt Count (150-400) X10^3/uL Neut % (Auto) (50-75) % Lymph % (Auto) (25-40) % Hubbard % (Auto) (3-14) % Eos % (Auto) (2-4) % Baso % (Auto) (0-2) % Neut # (Auto) (1089-4041) /uL Lymph # (Auto) (5578-7271) /uL Hubbard # (Auto) (0-900) /uL Eos # (Auto) (0-450) /uL Baso # (Auto) (0-100) /uL D-Dimer (<500) ng/ml Sodium (137-145) mmol/L Potassium (3.4-5.1) mmol/L Chloride (98-107) mmol/L Carbon Dioxide (22-32) mmol/L BUN (7-17) mg/dL Creatinine (0.52-1.04) mg/dL Estimated GFR (>60) mL/min BUN/Creatinine Ratio (6-22) Glucose (70-100) mg/dL Calcium (8.4-10.2) mg/dL Magnesium (1.6-2.3) mg/dL Total Bilirubin (0.2-1.3) mg/dL AST (14-36) IU/L ALT (<35) IU/L Alkaline Phosphatase (38-126) U/L Total Creatine Kinase 108 (30-135) U/L CK-MB (CK-2) 0.92 (<2.37) ng/mL CK-MB (CK-2) Rel Index 0.9 L (1.5-5.0) % Troponin I < 0.012 (0.01-0.034) ng/mL Total Protein (6.3-8.2) g/dL Albumin (3.5-5.0) g/dL Globulin (1.7-4.1) g/dL Albumin/Globulin Ratio (1.0-2.8) Lipase (23-300) U/L Imaging Data Chest x-ray: Radiologist's Impression: PROCEDURE:? XR CHEST 1V ? INDICATIONS:? chest pain ? TECHNIQUE:? One view of the chest was acquired.? ? COMPARISON:? None. ? FINDINGS:? ? Surgical changes and devices:? None.? ? Lungs and pleura:? Lungs are clear.? No pleural effusions or pneumothorax.? ? Mediastinum:? Mediastinal contours appear normal.? Heart size is normal.? ? Bones and chest wall:? No suspicious bony lesions.? Overlying soft tissues appear unremarkable.? ? IMPRESSION:? No acute cardiopulmonary abnormality. ECG Data Attestation: I personally reviewed and interpreted this ECG as follows: Interpretation: Sinus rhythm Ventricular rate is 71 Normal axis Normal QRS Normal QTC No ST T wave changes MDM Narrative Medical decision making narrative: Chest x-ray is unremarkable. EKG is unremarkable. Low risk heart score. D- dimer is negative. Troponins negative. Low suspicion for ACS. Low suspicion for PE. Patient does not have any skin changes over the area. No abnormal discharge. Low suspicion for mastitis. Unsure the exact etiology of the patient's symptoms. I did discuss this with her. She understands lack of a definitive diagnosis. We did discuss that there are other potential etiologies such as musculoskeletal and GI that could be causing her symptoms as well. There is no indication for antibiotics. We will hold on further workup for now. She can continue to breastfeed like normal. She was given return precautions. She expressed understanding and agreement. Discharge Plan Departure Patient Disposition: Home Clinical Impression: Atypical chest pain Instructions: DI for Atypical Chest Pain Activity Restrictions/Additional Instructions: You can take Tylenol/ibuprofen for any discomfort. I do recommend that you continue to breastfeed like normal. If you started develop any new symptoms specifically a rash or redness over the area or feeling like her left breast is becoming engorged you do need to be re-evaluated. Keep all of your scheduled medical appointments. Prescriptions: No Action prenat.vits,kathy,[id number] Tablet 1 tab PO DAILY Slow Fe 142 mg (45 mg iron) tablet extended release 142 mg PO DAILY Referrals: Miscellaneous,Doctor, MD [Primary Care Provider] - Stand Alone Forms: Patient Portal/API
[2022-08-01 19:06] LABS: D Dimer 438 ng/ml (<500)
[2022-08-01 19:08] LABS: Troponin I < 0.012 ng/mL (0.01-0.034)
[2022-08-01 19:12] LABS: Creatine Kinase MB 1.27 ng/mL (<2.37)
[2022-08-01 20:49] LABS: Creatine Kinase 108 U/L (30-135)
[2022-08-01 21:02] LABS: Troponin I < 0.012 ng/mL (0.01-0.034)
[2022-08-01 21:05] LABS: CKMB % Relative Index 0.9 % (1.5-5.0); Creatine Kinase MB 0.92 ng/mL (<2.37)
== END 2022-08-01 21:31 | disposition home or self-care (01) ==
PROVIDERS: Emergency Provider Emergency Medicine
DX: R07.89 Other chest pain (principal)
CPT/HCPCS: 36415; 71045; 80053; 82550; 82553; 83690; 83735; 84484; 85025; 85379; 93005; 99284

== ENCOUNTER → 2023-06-09 11:20 | Outpatient (CLI) | payer BC, SELFPAY | PROVIDERS: PCP Family Medicine; Visit Provider Family Medicine | DX: J02.0 Streptococcal pharyngitis (principal); J02.9 Acute pharyngitis, unspecified | CPT/HCPCS: 87081; 87147 ==

== ENCOUNTER → 2024-03-06 15:03 | Outpatient (CLI) | payer BC, SELFPAY ==
[2024-03-06 15:36] LABS: Hematocrit 40.3 % (36-46); Hemoglobin 13.7 g/dL (12.0-16.0); Mean Corpuscular HGB Conc 33.9 % (30-36); Mean Corpuscular Volume 94.6 fL (80-100); Platelet Count 258 X10^3/uL (150-400); Red Blood Cell Count 4.26 X10^6/uL (4.0-5.2); Red Cell Distribution Width 12.8 % (11.6-14.8); White Blood Cell Count 7.9 X10^3/uL (4.5-11.0)
[2024-03-06 15:50] LABS: Hemoglobin A1C% w Est Avg Glu 5.4 % (4.0-6.0)
[2024-03-06 15:54] LABS: Alanine Aminotransferase 24 IU/L (<35); Albumin 4.4 g/dL (3.5-5.0); Albumin Globulin Ratio 1.4 (1.0-2.8); Alkaline Phosphatase 80 U/L (38-126); Aspartate Aminotransferase 29 IU/L (14-36); BUN Creatinine Ratio 15.7 (6-22); Bilirubin Total 0.3 mg/dL (0.2-1.3); Blood Urea Nitrogen 19 mg/dL (7-17); Calcium 9.3 mg/dL (8.4-10.2); Carbon Dioxide 27 mmol/L (22-32); Chloride 103 mmol/L (98-107); Estimated Glomerular Filt Rate 59 mL/min (>60); Globulin 3.1 g/dL (1.7-4.1); Glucose 109 mg/dL (70-100); HEMOLYSIS < 15 (0-50); Potassium 3.5 mmol/L (3.4-5.1); Sodium 137 mmol/L (137-145); Total Protein 7.5 g/dL (6.3-8.2)
[2024-03-06 16:23] LABS: TSH w/ Reflex to FT4 2.86 uIU/mL (0.47-4.68)
[2024-03-06 16:27] LABS: Ferritin 59 ng/mL (6-137)
[2024-03-06 16:42] LABS: Vitamin B12 496 pg/mL (239-931)
== END ==
LOC: LAB 15:04
PROVIDERS: PCP Family Medicine; Referring Provider Family Medicine; Visit Provider Family Medicine
DX: R53.82 Chronic fatigue, unspecified (principal); G43.009 Migraine without aura, not intractable, without status migrainosus; R63.5 Abnormal weight gain; F41.1 Generalized anxiety disorder; R68.82 Decreased libido
CPT/HCPCS: 36415; 80053; 82607; 82728; 83036; 84443; 85027

== ENCOUNTER → 2024-04-08 12:33 | Outpatient (CLI) | payer BC, SELFPAY ==
[2024-04-08 13:52] LABS: BUN Creatinine Ratio 18.1 (6-22); Blood Urea Nitrogen 19 mg/dL (7-17); Calcium 9.4 mg/dL (8.4-10.2); Carbon Dioxide 25 mmol/L (22-32); Chloride 104 mmol/L (98-107); Estimated Glomerular Filt Rate > 60 mL/min (>60); Glucose 85 mg/dL (70-100); HEMOLYSIS < 15 (0-50); Potassium 4.1 mmol/L (3.4-5.1); Sodium 135 mmol/L (137-145)
[2024-04-08 14:27] LABS: Microalbumin Urine Random < 0.6 mg/dL (0-1.6)
== END ==
PROVIDERS: PCP Family Medicine; Referring Provider Family Medicine; Visit Provider Family Medicine
DX: N28.9 Disorder of kidney and ureter, unspecified (principal); R68.82 Decreased libido
CPT/HCPCS: 80048; 82043; 82570

== ENCOUNTER → 2024-10-15 10:36 | Outpatient (CLI) | payer BC, SELFPAY ==
--- NOTE | 2024-10-15 10:36 | DI.US.S_ITS ---
PROCEDURE: US PELVIC COMPLETE INDICATIONS: IRREGULAR BLEEDING TECHNIQUE: Real-time scanning was performed of the pelvic organs, with image documentation. Additional endovaginal scanning was necessary due to incomplete visualization of the adnexal and endometrial structures by transabdominal scanning. COMPARISON: [facility], [place], US PELVIC COMPLETE, 11/24/2021, 10:10. FINDINGS: Uterus: Uterus is anteverted and normal in size at 6.6 x 4.1 x 3.2 cm. The myometrium is homogeneous. The endometrium measures 3.1 mm combined thickness. Normal uterine and endometrial vascularity. Small nabothian cysts present in the cervix. The cervix has a normal appearance. Ovaries: The right ovary measures 2.6 x 1.3 x 1.3 cm, with a calculated ovarian volume of 2.2 cc. The left ovary measures 2.0 x 1.8 x 1.4 cm, with a calculated ovarian volume of 2.7 cc. The ovaries have a normal sonographic appearance. Less than 12 follicles can be seen in each ovary. No adnexal masses are seen. Other: No pathologic free abdominal or pelvic fluid. Bilaterally enlarged adnexal vasculature. IMPRESSION: Normal uterine and endometrial morphology. Normal ovaries. Slightly prominent pelvic vasculature raises possibility of pelvic congestion syndrome in the appropriate clinical setting. We strive to produce accurate, complete, and clear reports of imaging services. To assist us in improving patient care, this report was composed using standard report templates and voice recognition software. Therefore, it may contain abnormal punctuation, insertions and/or omissions. Occasional wrong-word or sound-alike substitutions may occur. Though we review the report and make efforts to correct it, we do recommend that the report be read carefully in proper context to recognize any text inaccuracies. Dictated by: Kate Sabillon M.D. on 10/15/2024 at 14:38 Approved by: Kate Sabillon M.D. on 10/15/2024 at 14:41
== END ==
PROVIDERS: PCP Family Medicine; Referring Provider Obstetrics & Gynecology; Visit Provider Obstetrics & Gynecology
DX: N92.1 Excessive and frequent menstruation with irregular cycle (principal); Z97.5 Presence of (intrauterine) contraceptive device
CPT/HCPCS: 76830; 76856